=== PATIENT | male | born 1960 | race African-American/Black ===

== ENCOUNTER 2017-11-26 07:06 | Inpatient (IN) | payer MEDICAID ==
[~2017-11-26] VITALS: Ht 177.8 cm; Wt 126.6 kg
[~2017-11-26 07:06] MED LIST: AMLO5TAB4 PO; ASPI-1159; COR25; LISI40TA4; METF500T4 PO; RIVA20TA; SIMV20TA6
[2017-11-26] MEDS ORDERED: IPRATROPIUM BROMIDE (0.02%) 0.5MG/2.5ML NEB HHN STA (07:42)
[2017-11-26] MEDS ORDERED: ALBUTEROL (0.083%) 2.5MG/3ML NEB HHN STA (07:42)
[2017-11-26] MEDS ORDERED: BUMETANIDE 1MG/4ML VIAL IV ONE (07:45)
[2017-11-26 08:13] LABS: BASOPHILS % 0.7 % (0.0-2.0); EOSINOPHILS % 6.7 % (0.0-5.0); HEMATOCRIT. 39.6 % (42.0-52.0); LYMPHOCYTES % 13.6 % (20.0-50.0); MEAN CORPUSCULAR VOLUME 100.5 fL (80.0-94.0); MEAN PLATELET VOLUME 9.8 fl (7.4-10.4); MONOCYTES % 13.4 % (2.0-8.0); NEUTROPHILS % 65.6 % (40.0-76.0); PLATELET 169 x1000/uL (130-400); RED BLOOD CELL COUNT 3.94 mill/uL (4.7-6.1); RED CELL DISTRIBUTION WIDTH 15.8 % (11.6-14.6)
[2017-11-26 08:20] LABS: CHLORIDE 106 mEq/L (98-107)
[2017-11-26 08:21] LABS: INR 1.3; PARTIAL THROMBOPLASTIN TIME 25.4 sec (23.4-31.0); PROTHROMBIN TIME 13.4 sec (9.4-11.6)
[2017-11-26] MEDS ORDERED: ENOXAPARIN 40MG/0.4ML SYR SUBCUT SCH (08:45)
[2017-11-26] MEDS ORDERED: DIPHENHYDRAMINE 50MG/ML VIAL IV PRN (08:45)
[2017-11-26] MEDS ORDERED: ACETAMINOPHEN 325MG TABLET PO PRN (08:45)
[2017-11-26] MEDS ORDERED: MORPHINE SULFATE 4 MG/ML CPJ (NOT FOR IM USE) IV PRN (08:45)
[2017-11-26] MEDS ORDERED: CLONIDINE 0.1MG TABLET PO PRN (08:45)
[2017-11-26] MEDS ORDERED: GUAIFENESIN 200MG/10ML SUGAR FREE UDC PO PRN (08:45)
[2017-11-26] MEDS ORDERED: FUROSEMIDE 40MG/4ML VIAL IV SCH (09:00)
[2017-11-26] MEDS ORDERED: ENOXAPARIN 150MG/ML SYR SUBCUT ONE (09:15)
[2017-11-26] MEDS ORDERED: ASPIRIN 81MG TABLET PO ONE (09:30)
[2017-11-26 09:48] LABS: CHLORIDE 105 mEq/L (98-107)
[2017-11-26] MEDS ORDERED: NA PHOS,M-B/NA PHOS,DI-BA ENEMA 118ML PR PRN (15:37)
[2017-11-26] MEDS ORDERED: HYDROCODONE/ACETAMINOPHEN 10/325MG TABLET PO PRN (15:38)
[2017-11-26] MEDS ORDERED: IPRATROPIUM/ALBUTEROL 0.5-3(2.5)MG/3ML NEB INH PRN (15:39)
[2017-11-26] MEDS ORDERED: MAGNESIUM/ALUMINUM HYDROXIDE/SIMETHICONE 30ML UDC PO PRN (15:39)
[2017-11-26] MEDS ORDERED: DOCUSATE SODIUM 100MG CAPSULE PO PRN (15:40)
[2017-11-26] MEDS ORDERED: ONDANSETRON HCL 4MG/2ML VIAL IV PRN (15:40)
[2017-11-26] MEDS ORDERED: LORAZEPAM 2MG/ML CPJ IV PRN (15:41)
[2017-11-26] MEDS ORDERED: CARVEDILOL 25MG TABLET PO NR (17:00)
[2017-11-26 17:42] VITALS: BP 131/88
[2017-11-26 18:37] VITALS: BP 141/93
[2017-11-26] MEDS: ASPIRIN 81MG EC TABLET PO SCH (18:49)
[2017-11-26] MEDS: FUROSEMIDE 40MG/4ML VIAL IV SCH (18:50)
[2017-11-26] MEDS ORDERED: TAMS0.4C31 PO (19:44)
[2017-11-26] MEDS ORDERED: DEXTROSE 50% WATER 50ML SYRINGE IV PRN (19:45)
[2017-11-26 20:00] VITALS: BP 102/56
[2017-11-26] MEDS: INSULIN LISPRO 100 UNITS/ML SUBCUT SCH (21:00)
[2017-11-26] MEDS: AMLODIPINE 5MG TABLET PO SCH (21:00)
[2017-11-26] MEDS: LISINOPRIL 20MG TABLET PO SCH (21:00)
[2017-11-26] MEDS: IPRATROPIUM BROMIDE (0.02%) 0.5MG/2.5ML NEB HHN SCH (21:05)
[2017-11-26] MEDS: TAMSULOSIN HCL 0.4MG SR CAPSULE PO SCH (21:08)
[2017-11-26] MEDS: ENOXAPARIN 150MG/ML SYR SUBCUT SCH (21:09)
[2017-11-26] MEDS: BLOOD SUGAR DIAGNOSTIC STRIP TEST SCH (21:09)
[2017-11-26 22:30] VITALS: BP 119/69
[2017-11-27] VITALS (13 sets, daily range): BP systolic 103–151; BP diastolic 47–124
[2017-11-27] MEDS: IPRATROPIUM BROMIDE (0.02%) 0.5MG/2.5ML NEB HHN SCH ×4 (01:08→22:25)
[2017-11-27] MEDS: BLOOD SUGAR DIAGNOSTIC STRIP TEST SCH ×4 (06:25→20:59)
[2017-11-27 06:50] LABS: BASOPHILS % 0.5 % (0.0-2.0); EOSINOPHILS % 6.3 % (0.0-5.0); HEMATOCRIT. 37.1 % (42.0-52.0); HEMOGLOBIN. 12.3 g/dL (14.0-18.0); LYMPHOCYTES % 13.8 % (20.0-50.0); MEAN CORPUSCULAR HEMOGLOBIN 33.2 pg (28.0-32.0); MEAN CORPUSCULAR VOLUME 100.6 fL (80.0-94.0); MEAN PLATELET VOLUME 9.7 fl (7.4-10.4); MONOCYTES % 12.9 % (2.0-8.0); NEUTROPHILS % 66.5 % (40.0-76.0); PLATELET 168 x1000/uL (130-400); RED BLOOD CELL COUNT 3.69 mill/uL (4.7-6.1); RED CELL DISTRIBUTION WIDTH 15.7 % (11.6-14.6)
[2017-11-27] MEDS: INSULIN LISPRO 100 UNITS/ML SUBCUT SCH ×4 (07:20→20:59)
[2017-11-27 07:41] LABS: CHLORIDE 104 mEq/L (98-107)
[2017-11-27] MEDS: FUROSEMIDE 40MG/4ML VIAL IV SCH ×2 (07:55→17:06)
[2017-11-27] MEDS: LISINOPRIL 20MG TABLET PO SCH ×2 (07:56→20:57)
[2017-11-27] MEDS: ENOXAPARIN 150MG/ML SYR SUBCUT SCH ×2 (07:56→20:58)
[2017-11-27] MEDS: METFORMIN HCL 500MG TABLET PO SCH ×2 (07:56→17:06)
[2017-11-27] MEDS: ASPIRIN 81MG EC TABLET PO SCH (07:57)
[2017-11-27] MEDS: AMLODIPINE 5MG TABLET PO SCH ×2 (07:58→20:58)
[2017-11-27 08:00] LABS: LDL CHOLESTEROL 52 mg/dL (5-100)
[2017-11-27 08:01] LABS: HDL CHOLESTEROL 23 mg/dL (40-59); T4 FREE 1.14 ng/dL (0.76-1.46)
[2017-11-27 17:39] LABS: CLARITY URINE CLEAR (CLEAR); COLOR URINE YELLOW (YELLOW); KETONES URINE NEGATIVE (NEGATIVE); LEUKOCYTE ESTERASE URINE NEGATIVE (NEGATIVE); NITRITE URINE NEGATIVE (NEGATIVE); OCCULT BLOOD URINE NEGATIVE (NEGATIVE); PH URINE 5.5 (4.5-8.0); PROTEIN URINE TRACE (NEGATIVE)
[2017-11-27 18:02] LABS: *AMPHETAMINES SCREEN URINE NEGATIVE (NEGATIVE); CANNABINOID URINE SCREEN NEGATIVE (NEGATIVE); PHENCYCLIDINE URINE SCREEN NEGATIVE (NEGATIVE)
[2017-11-27 18:03] LABS: *BARBITURATES SCREEN URINE NEGATIVE (NEGATIVE); *BENZODIAZEPINES SCREEN URINE NEGATIVE (NEGATIVE); *COCAINE SCREEN URINE NEGATIVE (NEGATIVE); METHADONE URINE SCREEN NEGATIVE (NEGATIVE); OPIATES URINE SCREEN NEGATIVE (NEGATIVE)
[2017-11-27] MEDS: CARVEDILOL 6.25 MG TABLET PO SCH (20:57)
[2017-11-27] MEDS: TAMSULOSIN HCL 0.4MG SR CAPSULE PO SCH (21:04)
[2017-11-28] VITALS (12 sets, daily range): BP systolic 101–137; BP diastolic 60–91
[2017-11-28] MEDS: IPRATROPIUM BROMIDE (0.02%) 0.5MG/2.5ML NEB HHN SCH ×4 (04:28→20:04)
[2017-11-28] MEDS: BLOOD SUGAR DIAGNOSTIC STRIP TEST SCH ×4 (06:50→21:09)
[2017-11-28 06:54] LABS: EOSINOPHILS % 8.1 % (0.0-5.0); HEMATOCRIT. 38.7 % (42.0-52.0); HEMOGLOBIN. 12.7 g/dL (14.0-18.0); LYMPHOCYTES % 12.2 % (20.0-50.0); MEAN CORPUSCULAR HEMOGLOBIN 33.1 pg (28.0-32.0); MEAN CORPUSCULAR VOLUME 100.7 fL (80.0-94.0); MEAN PLATELET VOLUME 10.2 fl (7.4-10.4); MONOCYTES % 10.8 % (2.0-8.0); NEUTROPHILS % 67.9 % (40.0-76.0); PLATELET 177 x1000/uL (130-400); RED BLOOD CELL COUNT 3.85 mill/uL (4.7-6.1); RED CELL DISTRIBUTION WIDTH 15.5 % (11.6-14.6)
[2017-11-28] MEDS: INSULIN LISPRO 100 UNITS/ML SUBCUT SCH ×4 (07:20→21:00)
[2017-11-28] MEDS: METFORMIN HCL 500MG TABLET PO SCH ×2 (07:41→17:19)
[2017-11-28] MEDS: FUROSEMIDE 40MG/4ML VIAL IV SCH ×2 (07:41→17:19)
[2017-11-28] MEDS: ASPIRIN 81MG EC TABLET PO SCH (07:42)
[2017-11-28] MEDS: CARVEDILOL 6.25 MG TABLET PO SCH (07:43)
[2017-11-28] MEDS: AMLODIPINE 5MG TABLET PO SCH ×2 (07:43→21:03)
[2017-11-28] MEDS: ENOXAPARIN 150MG/ML SYR SUBCUT SCH ×2 (07:44→21:05)
[2017-11-28 08:53] LABS: CHLORIDE 104 mEq/L (98-107)
[2017-11-28] MEDS: LISINOPRIL 20MG TABLET PO SCH ×2 (11:28→21:03)
[2017-11-28] MEDS ORDERED: DIGOXIN 250MCG TABLET PO SCH (18:00)
[2017-11-28] MEDS: CARVEDILOL 12.5MG TABLET PO SCH (21:04)
[2017-11-28] MEDS: TAMSULOSIN HCL 0.4MG SR CAPSULE PO SCH (21:04)
[2017-11-29] VITALS (7 sets, daily range): BP systolic 110–145; BP diastolic 69–90
[2017-11-29] MEDS: IPRATROPIUM BROMIDE (0.02%) 0.5MG/2.5ML NEB HHN SCH ×2 (05:01→08:08)
[2017-11-29] MEDS: BLOOD SUGAR DIAGNOSTIC STRIP TEST SCH (06:26)
[2017-11-29 06:42] LABS: BASOPHILS % 0.7 % (0.0-2.0); EOSINOPHILS % 9.3 % (0.0-5.0); HEMATOCRIT. 37.7 % (42.0-52.0); HEMOGLOBIN. 12.3 g/dL (14.0-18.0); LYMPHOCYTES % 14.9 % (20.0-50.0); MEAN CORPUSCULAR HEMOGLOBIN 32.8 pg (28.0-32.0); MEAN CORPUSCULAR VOLUME 100.7 fL (80.0-94.0); MEAN PLATELET VOLUME 9.6 fl (7.4-10.4); MONOCYTES % 12.7 % (2.0-8.0); NEUTROPHILS % 62.4 % (40.0-76.0); PLATELET 190 x1000/uL (130-400); RED BLOOD CELL COUNT 3.74 mill/uL (4.7-6.1); RED CELL DISTRIBUTION WIDTH 15.4 % (11.6-14.6)
[2017-11-29] MEDS: INSULIN LISPRO 100 UNITS/ML SUBCUT SCH (06:54)
[2017-11-29 07:04] LABS: CHLORIDE 101 mEq/L (98-107)
[2017-11-29] MEDS: ASPIRIN 81MG EC TABLET PO SCH (08:21)
[2017-11-29] MEDS: METFORMIN HCL 500MG TABLET PO SCH (08:21)
[2017-11-29] MEDS: FUROSEMIDE 40MG/4ML VIAL IV SCH (08:21)
[2017-11-29] MEDS: CARVEDILOL 12.5MG TABLET PO SCH (08:21)
[2017-11-29] MEDS: LISINOPRIL 20MG TABLET PO SCH (08:21)
[2017-11-29] MEDS: AMLODIPINE 5MG TABLET PO SCH (08:22)
[2017-11-29] MEDS: ENOXAPARIN 150MG/ML SYR SUBCUT SCH (08:22)
[2017-11-29] MEDS ORDERED: CLON0.2T PO (09:41)
[2017-11-29] MEDS ORDERED: FURO40TA5 PO (09:42)
[2017-11-29] MEDS ORDERED: GLIP10TA10 PO (09:44)
== END 2017-11-29 10:00 | disposition home or self-care (01) | DRG 194 ==
LOC: ER 07:19 → EDBEDREQ 08:28 → 3WST 09:08 → EDBEDREQSVC 09:15 → ENRESERV 13:48
PROVIDERS: ADMIT Internal Medicine; ATTEND Internal Medicine
DX: I11.0 Hypertensive heart disease with heart failure (principal); J96.00 Acute respiratory failure, unspecified whether with hypoxia or hypercapnia; I21.4 Non-ST elevation (NSTEMI) myocardial infarction; E11.51 Type 2 diabetes mellitus with diabetic peripheral angiopathy without gangrene; Z68.41 Body mass index [BMI] 40.0-44.9, adult; I27.20 Pulmonary hypertension, unspecified; I50.43 Acute on chronic combined systolic (congestive) and diastolic (congestive) heart failure; I42.9 Cardiomyopathy, unspecified; D64.9 Anemia, unspecified; E78.5 Hyperlipidemia, unspecified; Z96.659 Presence of unspecified artificial knee joint; E66.09 Other obesity due to excess calories; I25.10 Atherosclerotic heart disease of native coronary artery without angina pectoris; I34.0 Nonrheumatic mitral (valve) insufficiency; I48.91 Unspecified atrial fibrillation; M17.10 Unilateral primary osteoarthritis, unspecified knee; Z79.01 Long term (current) use of anticoagulants; Z79.82 Long term (current) use of aspirin; Z79.84 Long term (current) use of oral hypoglycemic drugs; Z79.899 Other long term (current) drug therapy; Z82.49 Family history of ischemic heart disease and other diseases of the circulatory system; Z87.891 Personal history of nicotine dependence; Z90.49 Acquired absence of other specified parts of digestive tract; Z91.11 Patient's noncompliance with dietary regimen; Z91.19 Patient's noncompliance with other medical treatment and regimen; Z95.5 Presence of coronary angioplasty implant and graft; Z72.89 Other problems related to lifestyle
CPT/HCPCS: 36415; 71045; 80048; 80053; 80061; 80305; 81003; 82962; 83036; 83605; 83735; 83880; 84439; 84443; 84484; 85025; 85610; 85730; 87040; 87086; 93005; 93306; 93970; 94640; J1650; J1940; J3490; J7611; J7620

== ENCOUNTER 2018-06-01 09:02 | Inpatient (IN) | payer MEDICAID ==
[~2018-06-01] VITALS: Ht 177.8 cm; Wt 116.1 kg
[~2018-06-01 09:02] MED LIST changes: +CLON0.2T PO; -COR25; +FURO40TA5 PO; +GLIP10TA10 PO; -LISI40TA4; +METF-414 PO; -METF500T4 PO; -RIVA20TA; -SIMV20TA6; +TAMS0.4C31 PO
[2018-06-01 09:55] LABS: BASOPHILS % 0.9 % (0.0-2.0); EOSINOPHILS % 10.1 % (0.0-5.0); HEMATOCRIT. 40.4 % (42.0-52.0); HEMOGLOBIN. 13.5 g/dL (14.0-18.0); LYMPHOCYTES % 15.9 % (20.0-50.0); MEAN CORPUSCULAR HEMOGLOBIN 34.2 pg (28.0-32.0); MEAN CORPUSCULAR VOLUME 102.5 fL (80.0-94.0); MEAN PLATELET VOLUME 9.9 fl (7.4-10.4); MONOCYTES % 13.2 % (2.0-8.0); NEUTROPHILS % 59.9 % (40.0-76.0); PLATELET 132 x1000/uL (130-400); RED BLOOD CELL COUNT 3.94 mill/uL (4.7-6.1); RED CELL DISTRIBUTION WIDTH 14.7 % (11.6-14.6)
[2018-06-01 09:57] LABS: CHLORIDE 104 mEq/L (98-107)
[2018-06-01] MEDS ORDERED: ASPIRIN 81MG TABLET PO ONE (10:30)
[2018-06-01] MEDS ORDERED: FUROSEMIDE 40MG/4ML VIAL IVP NR (10:30)
[2018-06-01 20:00] VITALS: BP 150/81
[2018-06-01 20:30] VITALS: BP 150/81
[2018-06-01] MEDS ORDERED: ACETAMINOPHEN 325MG TABLET PO PRN (22:15)
[2018-06-01] MEDS ORDERED: ONDANSETRON HCL 4MG/2ML INJ IV PRN (22:15)
[2018-06-01] MEDS: ENOXAPARIN 150MG/ML SYR SUBCUT SCH (23:01)
[2018-06-02] VITALS: BP 148/99
[2018-06-02 04:00] VITALS: BP 116/94
[2018-06-02] MEDS: BLOOD SUGAR DIAGNOSTIC STRIP TEST SCH ×4 (06:21→20:42)
[2018-06-02] MEDS: GLIPIZIDE 10MG TABLET PO SCH (06:21)
[2018-06-02 06:59] LABS: BASOPHILS % 1.1 % (0.0-2.0); EOSINOPHILS % 12.6 % (0.0-5.0); HEMATOCRIT. 38.2 % (42.0-52.0); HEMOGLOBIN. 12.9 g/dL (14.0-18.0); LYMPHOCYTES % 14.5 % (20.0-50.0); MEAN CORPUSCULAR HEMOGLOBIN 34.1 pg (28.0-32.0); MEAN CORPUSCULAR VOLUME 101.6 fL (80.0-94.0); MEAN PLATELET VOLUME 9.8 fl (7.4-10.4); MONOCYTES % 13.4 % (2.0-8.0); NEUTROPHILS % 58.4 % (40.0-76.0); PLATELET 113 x1000/uL (130-400); RED BLOOD CELL COUNT 3.76 mill/uL (4.7-6.1); RED CELL DISTRIBUTION WIDTH 14.6 % (11.6-14.6)
[2018-06-02 07:16] LABS: CHLORIDE 106 mEq/L (98-107)
[2018-06-02 07:34] LABS: CREATINE KINASE 211 IU/L (39-308)
[2018-06-02 07:36] LABS: CREATINE KINASE MB FRACTION 2.8 ng/mL (0.5-3.6)
[2018-06-02] MEDS: INSULIN LISPRO 100 UNITS/ML SUBCUT SCH ×4 (07:39→20:42)
[2018-06-02 08:00] VITALS: BP 160/77
[2018-06-02] MEDS: ASPIRIN 81MG TABLET PO SCH (08:53)
[2018-06-02] MEDS: ENOXAPARIN 150MG/ML SYR SUBCUT SCH ×2 (09:00→20:44)
[2018-06-02] MEDS ORDERED: FUROSEMIDE 40MG/4ML VIAL IVP SCH (09:00)
[2018-06-02] MEDS ORDERED: AMLODIPINE 5MG TABLET PO SCH (09:00)
[2018-06-02] MEDS ORDERED: CLONIDINE 0.2MG TABLET PO SCH (09:00)
[2018-06-02] MEDS ORDERED: LISI-604 MT (10:40)
[2018-06-02 12:00] VITALS: BP 90/65
[2018-06-02 16:00] VITALS: BP 134/78
[2018-06-02 16:03] LABS: CREATINE KINASE MB FRACTION 2.9 ng/mL (0.5-3.6)
[2018-06-02 20:00] VITALS: BP 161/111
[2018-06-02] MEDS: FUROSEMIDE 40MG/4ML VIAL IVP SCH (20:43)
[2018-06-02] MEDS: LISINOPRIL 20MG TABLET PO SCH (20:44)
[2018-06-03] VITALS: BP 126/85
[2018-06-03 04:00] VITALS: BP 134/100
[2018-06-03] MEDS: GLIPIZIDE 10MG TABLET PO SCH (06:20)
[2018-06-03] MEDS: BLOOD SUGAR DIAGNOSTIC STRIP TEST SCH ×4 (06:20→20:48)
[2018-06-03 07:04] LABS: CHLORIDE 103 mEq/L (98-107)
[2018-06-03] MEDS: INSULIN LISPRO 100 UNITS/ML SUBCUT SCH ×4 (07:50→20:56)
[2018-06-03 08:06] VITALS: BP 137/91
[2018-06-03] MEDS: ASPIRIN 81MG TABLET PO SCH (09:36)
[2018-06-03] MEDS: FUROSEMIDE 40MG/4ML VIAL IVP SCH ×2 (09:36→20:46)
[2018-06-03] MEDS: METOLAZONE 2.5MG TABLET PO SCH ×2 (09:37→17:35)
[2018-06-03] MEDS: CLONIDINE 0.1MG TABLET PO SCH (09:37)
[2018-06-03] MEDS: LISINOPRIL 20MG TABLET PO SCH ×2 (09:38→20:47)
[2018-06-03] MEDS: ENOXAPARIN 150MG/ML SYR SUBCUT SCH ×2 (09:44→20:47)
[2018-06-03 12:07] VITALS: BP 142/90
[2018-06-03 16:03] VITALS: BP 122/80
[2018-06-03 20:00] VITALS: BP 126/94
[2018-06-04] VITALS: BP 133/97
[2018-06-04 04:00] VITALS: BP 134/100
[2018-06-04] MEDS: GLIPIZIDE 10MG TABLET PO SCH (06:12)
[2018-06-04] MEDS: BLOOD SUGAR DIAGNOSTIC STRIP TEST SCH ×4 (06:13→21:40)
[2018-06-04] MEDS: INSULIN LISPRO 100 UNITS/ML SUBCUT SCH ×4 (07:50→21:00)
[2018-06-04 08:00] VITALS: BP 135/81
[2018-06-04 08:07] LABS: CHLORIDE 97 mEq/L (98-107)
[2018-06-04] MEDS: FUROSEMIDE 40MG/4ML VIAL IVP SCH ×2 (08:45→21:31)
[2018-06-04] MEDS: ENOXAPARIN 150MG/ML SYR SUBCUT SCH ×2 (08:45→21:31)
[2018-06-04] MEDS: METOLAZONE 2.5MG TABLET PO SCH ×2 (08:46→16:59)
[2018-06-04] MEDS: ASPIRIN 81MG TABLET PO SCH (08:46)
[2018-06-04] MEDS: CLONIDINE 0.1MG TABLET PO SCH (08:46)
[2018-06-04] MEDS: LISINOPRIL 20MG TABLET PO SCH ×2 (08:46→21:31)
[2018-06-04 13:02] VITALS: BP 120/73
[2018-06-04 16:45] VITALS: BP 110/85
[2018-06-04 18:03] LABS: CLARITY URINE CLEAR (CLEAR); COLOR URINE YELLOW (YELLOW); KETONES URINE NEGATIVE (NEGATIVE); LEUKOCYTE ESTERASE URINE NEGATIVE (NEGATIVE); NITRITE URINE NEGATIVE (NEGATIVE); OCCULT BLOOD URINE NEGATIVE (NEGATIVE); PROTEIN URINE NEGATIVE (NEGATIVE); SPECIFIC GRAVITY URINE 1.011 (1.005-1.030)
[2018-06-04 20:11] VITALS: BP 132/96
[2018-06-05 00:34] VITALS: BP 131/81
[2018-06-05 04:00] VITALS: BP 98/70
[2018-06-05] MEDS: BLOOD SUGAR DIAGNOSTIC STRIP TEST SCH ×4 (06:57→21:06)
[2018-06-05] MEDS: GLIPIZIDE 10MG TABLET PO SCH (06:57)
[2018-06-05] MEDS: INSULIN LISPRO 100 UNITS/ML SUBCUT SCH ×4 (06:58→21:00)
[2018-06-05 07:40] LABS: HEMATOCRIT. 40.1 % (42.0-52.0); HEMOGLOBIN. 13.4 g/dL (14.0-18.0); MEAN CORPUSCULAR VOLUME 101.5 fL (80.0-94.0); MEAN PLATELET VOLUME 10.4 fl (7.4-10.4); PLATELET 117 x1000/uL (130-400); RED BLOOD CELL COUNT 3.95 mill/uL (4.7-6.1); RED CELL DISTRIBUTION WIDTH 14.4 % (11.6-14.6)
[2018-06-05 07:47] LABS: CHLORIDE 95 mEq/L (98-107)
[2018-06-05 08:03] LABS: PHOSPHORUS 4.7 mg/dL (2.5-4.9)
[2018-06-05 08:04] VITALS: BP 132/72
[2018-06-05] MEDS: CLONIDINE 0.1MG TABLET PO SCH (09:06)
[2018-06-05] MEDS: FUROSEMIDE 40MG/4ML VIAL IVP SCH ×2 (09:06→21:05)
[2018-06-05] MEDS: ASPIRIN 81MG TABLET PO SCH (09:06)
[2018-06-05] MEDS: METOLAZONE 2.5MG TABLET PO SCH ×2 (09:06→17:19)
[2018-06-05] MEDS: LISINOPRIL 20MG TABLET PO SCH ×2 (09:07→21:00)
[2018-06-05] MEDS: ENOXAPARIN 150MG/ML SYR SUBCUT SCH ×2 (09:08→21:00)
[2018-06-05] MEDS: DEXTROSE 50% WATER 50ML SYRINGE IV PRN ×2 (12:15→17:19)
[2018-06-05 12:20] VITALS: BP 134/84
[2018-06-05 13:12] LABS: PLATELET ESTIMATE SLIGHTLY DECREASED
[2018-06-05 16:08] VITALS: BP 134/84
[2018-06-05 20:00] VITALS: BP 109/78
[2018-06-06] VITALS: BP 112/76
[2018-06-06 04:00] VITALS: BP 115/79
[2018-06-06] MEDS: BLOOD SUGAR DIAGNOSTIC STRIP TEST SCH ×4 (06:28→20:34)
[2018-06-06 06:41] LABS: HEMATOCRIT. 38.5 % (42.0-52.0); HEMOGLOBIN. 13.1 g/dL (14.0-18.0); MEAN CORPUSCULAR HEMOGLOBIN 34.2 pg (28.0-32.0); MEAN CORPUSCULAR VOLUME 100.5 fL (80.0-94.0); MEAN PLATELET VOLUME 10.8 fl (7.4-10.4); PLATELET 136 x1000/uL (130-400); RED BLOOD CELL COUNT 3.83 mill/uL (4.7-6.1); RED CELL DISTRIBUTION WIDTH 14.4 % (11.6-14.6)
[2018-06-06] MEDS: INSULIN LISPRO 100 UNITS/ML SUBCUT SCH ×4 (07:06→20:33)
[2018-06-06 07:10] LABS: CHLORIDE 91 mEq/L (98-107)
[2018-06-06 08:19] VITALS: BP 132/86
[2018-06-06] MEDS: ASPIRIN 81MG TABLET PO SCH (08:37)
[2018-06-06] MEDS: GLIPIZIDE 10MG TABLET PO SCH (08:37)
[2018-06-06] MEDS: LISINOPRIL 20MG TABLET PO SCH ×2 (08:37→20:33)
[2018-06-06] MEDS: METOLAZONE 2.5MG TABLET PO SCH ×2 (08:37→17:08)
[2018-06-06] MEDS: FUROSEMIDE 40MG/4ML VIAL IVP SCH ×2 (08:37→20:32)
[2018-06-06] MEDS: CLONIDINE 0.1MG TABLET PO SCH (08:39)
[2018-06-06] MEDS: ENOXAPARIN 150MG/ML SYR SUBCUT SCH (08:40)
[2018-06-06 10:53] LABS: PLATELET ESTIMATE NORMAL
[2018-06-06 12:36] VITALS: BP 95/55
[2018-06-06 16:17] VITALS: BP 97/66
[2018-06-06] MEDS ORDERED: POTASSIUM CHLORIDE 20MEQ TABLET SR PO NR (16:30)
[2018-06-06 20:00] VITALS: BP 148/89
[2018-06-06] MEDS: ENOXAPARIN 120MG/0.8ML SYR SUBCUT SCH (20:41)
[2018-06-07] VITALS: BP 113/68
[2018-06-07 04:00] VITALS: BP 111/79
[2018-06-07] MEDS: BLOOD SUGAR DIAGNOSTIC STRIP TEST SCH ×4 (06:20→21:14)
[2018-06-07 06:28] LABS: HEMATOCRIT. 41.6 % (42.0-52.0); HEMOGLOBIN. 13.9 g/dL (14.0-18.0); MEAN CORPUSCULAR HEMOGLOBIN 33.8 pg (28.0-32.0); MEAN CORPUSCULAR VOLUME 100.9 fL (80.0-94.0); MEAN PLATELET VOLUME 10.5 fl (7.4-10.4); PLATELET 138 x1000/uL (130-400); RED BLOOD CELL COUNT 4.13 mill/uL (4.7-6.1); RED CELL DISTRIBUTION WIDTH 14.5 % (11.6-14.6)
[2018-06-07 06:53] LABS: CHLORIDE 92 mEq/L (98-107)
[2018-06-07] MEDS: INSULIN LISPRO 100 UNITS/ML SUBCUT SCH ×4 (07:12→21:00)
[2018-06-07] MEDS: LISINOPRIL 20MG TABLET PO SCH ×2 (08:21→21:00)
[2018-06-07] MEDS: CLONIDINE 0.1MG TABLET PO SCH (08:21)
[2018-06-07] MEDS: ASPIRIN 81MG TABLET PO SCH (08:30)
[2018-06-07] MEDS: FUROSEMIDE 40MG/4ML VIAL IVP SCH ×2 (08:30→21:13)
[2018-06-07] MEDS: METOLAZONE 2.5MG TABLET PO SCH ×2 (08:30→17:53)
[2018-06-07] MEDS: GLIPIZIDE 10MG TABLET PO SCH (08:30)
[2018-06-07] MEDS: ENOXAPARIN 120MG/0.8ML SYR SUBCUT SCH ×3 (08:31→21:14)
[2018-06-07 09:24] LABS: PLATELET ESTIMATE NORMAL
[2018-06-07 12:00] VITALS: BP 107/68
[2018-06-07 16:00] VITALS: BP 131/95
[2018-06-07 20:00] VITALS: BP 97/73
[2018-06-08] VITALS (8 sets, daily range): BP systolic 91–122; BP diastolic 50–89
[2018-06-08] MEDS: BLOOD SUGAR DIAGNOSTIC STRIP TEST SCH ×4 (06:20→21:00)
[2018-06-08 06:45] LABS: HEMATOCRIT. 43.8 % (42.0-52.0); HEMOGLOBIN. 14.8 g/dL (14.0-18.0); MEAN CORPUSCULAR VOLUME 100.6 fL (80.0-94.0); MEAN PLATELET VOLUME 10.3 fl (7.4-10.4); PLATELET 135 x1000/uL (130-400); RED BLOOD CELL COUNT 4.35 mill/uL (4.7-6.1); RED CELL DISTRIBUTION WIDTH 14.6 % (11.6-14.6)
[2018-06-08 07:10] LABS: CHLORIDE 91 mEq/L (98-107)
[2018-06-08] MEDS: INSULIN LISPRO 100 UNITS/ML SUBCUT SCH ×4 (07:50→21:00)
[2018-06-08] MEDS: CLONIDINE 0.1MG TABLET PO SCH (08:12)
[2018-06-08] MEDS: LISINOPRIL 20MG TABLET PO SCH ×2 (08:13→21:00)
[2018-06-08] MEDS: ASPIRIN 81MG TABLET PO SCH (08:50)
[2018-06-08] MEDS: FUROSEMIDE 40MG/4ML VIAL IVP SCH ×2 (08:50→21:22)
[2018-06-08] MEDS: GLIPIZIDE 10MG TABLET PO SCH (08:50)
[2018-06-08] MEDS: ENOXAPARIN 120MG/0.8ML SYR SUBCUT SCH ×2 (08:51→21:25)
[2018-06-08] MEDS: METOLAZONE 2.5MG TABLET PO SCH ×2 (09:20→18:28)
[2018-06-08] MEDS ORDERED: HYDROCODONE/ACETAMINOPHEN 5/325MG TABLET PO PRN (10:15)
[2018-06-08 13:54] LABS: PLATELET ESTIMATE NORMAL
[2018-06-08] MEDS ORDERED: AMIODARONE HCL 50MG/ML 9ML VIAL IV ONE ×2 (14:30)
[2018-06-08] MEDS ORDERED: AMIODARONE HCL 150 MG in DEXT 5% WATER 100 ML IV SCH (15:00)
[2018-06-08] MEDS ORDERED: AMIODARONE HCL 900 MG in DEXT 5% WATER 482 ML IV SCH (15:00)
[2018-06-09] VITALS (12 sets, daily range): BP systolic 98–123; BP diastolic 51–84
[2018-06-09] MEDS: GLIPIZIDE 10MG TABLET PO SCH (07:05)
[2018-06-09] MEDS: INSULIN LISPRO 100 UNITS/ML SUBCUT SCH ×4 (08:00→21:00)
[2018-06-09] MEDS: BLOOD SUGAR DIAGNOSTIC STRIP TEST SCH ×4 (08:02→20:36)
[2018-06-09 08:19] LABS: HEMATOCRIT. 44.2 % (42.0-52.0); HEMOGLOBIN. 14.9 g/dL (14.0-18.0); MEAN CORPUSCULAR VOLUME 100.5 fL (80.0-94.0); MEAN PLATELET VOLUME 10.8 fl (7.4-10.4); PLATELET 148 x1000/uL (130-400); RED BLOOD CELL COUNT 4.39 mill/uL (4.7-6.1); RED CELL DISTRIBUTION WIDTH 14.4 % (11.6-14.6)
[2018-06-09] MEDS: ENOXAPARIN 120MG/0.8ML SYR SUBCUT SCH ×2 (09:00→20:24)
[2018-06-09] MEDS: FUROSEMIDE 40MG/4ML VIAL IVP SCH ×2 (09:08→20:23)
[2018-06-09] MEDS: CLONIDINE 0.1MG TABLET PO SCH (09:08)
[2018-06-09] MEDS: METOLAZONE 2.5MG TABLET PO SCH (09:08)
[2018-06-09] MEDS: LISINOPRIL 20MG TABLET PO SCH ×2 (09:08→20:24)
[2018-06-09] MEDS: ASPIRIN 81MG TABLET PO SCH (09:08)
[2018-06-09 11:26] LABS: PLATELET ESTIMATE NORMAL
[2018-06-09] MEDS ORDERED: COLCHICINE 0.6MG TABLET PO NR (12:25)
[2018-06-09] MEDS: COLCHICINE 0.6MG TABLET PO SCH (20:23)
[2018-06-10] VITALS (7 sets, daily range): BP systolic 71–121; BP diastolic 44–77
[2018-06-10] MEDS: GLIPIZIDE 10MG TABLET PO SCH (06:42)
[2018-06-10 06:49] LABS: HEMATOCRIT. 46.4 % (42.0-52.0); HEMOGLOBIN. 15.6 g/dL (14.0-18.0); MEAN CORPUSCULAR VOLUME 100.7 fL (80.0-94.0); PLATELET 151 x1000/uL (130-400); RED BLOOD CELL COUNT 4.61 mill/uL (4.7-6.1); RED CELL DISTRIBUTION WIDTH 14.6 % (11.6-14.6)
[2018-06-10] MEDS: INSULIN LISPRO 100 UNITS/ML SUBCUT SCH ×4 (07:54→21:00)
[2018-06-10] MEDS: BLOOD SUGAR DIAGNOSTIC STRIP TEST SCH ×4 (07:54→21:33)
[2018-06-10] MEDS: ENOXAPARIN 120MG/0.8ML SYR SUBCUT SCH ×2 (09:00→21:00)
[2018-06-10] MEDS ORDERED: COLCHICINE 0.6MG TABLET PO PRN (09:00)
[2018-06-10] MEDS: COLCHICINE 0.6MG TABLET PO SCH (09:51)
[2018-06-10] MEDS: ASPIRIN 81MG TABLET PO SCH (09:51)
[2018-06-10] MEDS: LISINOPRIL 20MG TABLET PO SCH ×2 (09:52→21:00)
[2018-06-10] MEDS: CLONIDINE 0.1MG TABLET PO SCH (09:52)
[2018-06-10] MEDS: FUROSEMIDE 40MG/4ML VIAL IVP SCH (09:53)
[2018-06-10 11:23] LABS: PHOSPHORUS 5.3 mg/dL (2.5-4.9)
[2018-06-10 14:02] LABS: PLATELET ESTIMATE NORMAL
[2018-06-10] MEDS: FUROSEMIDE 40MG TABLET PO SCH (19:35)
[2018-06-10] MEDS ORDERED: SODIUM CHLORIDE 0.9% 250 ML IV ONE (21:30)
[2018-06-11 07:15] VITALS: BP 95/64
[2018-06-11 08:00] VITALS: BP 83/54
[2018-06-11] MEDS: INSULIN LISPRO 100 UNITS/ML SUBCUT SCH ×2 (08:00→12:09)
[2018-06-11] MEDS: BLOOD SUGAR DIAGNOSTIC STRIP TEST SCH ×2 (08:18→11:39)
[2018-06-11] MEDS: CLONIDINE 0.1MG TABLET PO SCH (08:19)
[2018-06-11] MEDS: LISINOPRIL 20MG TABLET PO SCH (08:19)
[2018-06-11] MEDS: FUROSEMIDE 40MG TABLET PO SCH (08:19)
[2018-06-11] MEDS: GLIPIZIDE 10MG TABLET PO SCH (08:48)
[2018-06-11] MEDS: ASPIRIN 81MG TABLET PO SCH (08:48)
[2018-06-11] MEDS: ENOXAPARIN 120MG/0.8ML SYR SUBCUT SCH (08:49)
[2018-06-11 10:00] VITALS: BP 92/60
[2018-06-11 11:45] VITALS: BP 87/49
[2018-06-11 12:00] VITALS: BP 79/53
[2018-06-11 16:00] VITALS: BP 83/55
[2018-06-12] MEDS ORDERED: LISINOPRIL 10MG TABLET PO SCH (09:00)
== END 2018-06-11 17:52 | disposition left against medical advice (07) | DRG 194 ==
LOC: ER 09:02 → 6WST 12:07 → ENRESERV 17:37 → 5EST 06-08 16:13
PROVIDERS: ADMIT Internal Medicine; ATTEND Internal Medicine
DX: I13.0 Hypertensive heart and chronic kidney disease with heart failure and stage 1 through stage 4 chronic kidney disease, or unspecified chronic kidney disease (principal); E11.22 Type 2 diabetes mellitus with diabetic chronic kidney disease; I27.20 Pulmonary hypertension, unspecified; I95.9 Hypotension, unspecified; N18.3 Chronic kidney disease, stage 3 (moderate); E87.1 Hypo-osmolality and hyponatremia; E66.01 Morbid (severe) obesity due to excess calories; K74.60 Unspecified cirrhosis of liver; I50.33 Acute on chronic diastolic (congestive) heart failure; I48.2 Chronic atrial fibrillation; M79.671 Pain in right foot; Z53.21 Procedure and treatment not carried out due to patient leaving prior to being seen by health care provider; F17.200 Nicotine dependence, unspecified, uncomplicated; F32.9 Major depressive disorder, single episode, unspecified; F41.9 Anxiety disorder, unspecified; J44.9 Chronic obstructive pulmonary disease, unspecified; M10.9 Gout, unspecified; Z96.659 Presence of unspecified artificial knee joint; Z68.36 Body mass index [BMI] 36.0-36.9, adult; Z90.49 Acquired absence of other specified parts of digestive tract; I25.2 Old myocardial infarction; Z79.82 Long term (current) use of aspirin; Z79.84 Long term (current) use of oral hypoglycemic drugs
CPT/HCPCS: 36415; 71045; 76700; 80048; 82550; 82553; 82570; 82962; 83735; 83880; 84100; 84156; 84484; 84550; 93005; 93306; 93970; 96374; 97162; 99285; C1893; J0282; J1650; J1940; J7050; J7060

== ENCOUNTER 2018-08-01 07:07 | Inpatient (IN) | payer MEDICAID ==
[~2018-08-01] VITALS: Ht 177.8 cm; Wt 139.7 kg
[~2018-08-01 07:07] MED LIST changes: +LISI-604 MT
[2018-08-01] MEDS ORDERED: FUROSEMIDE 40MG/4ML VIAL IVP ONE (11:45)
[2018-08-01 12:38] LABS: BASOPHILS % 1.2 % (0.0-2.0); EOSINOPHILS % 7.9 % (0.0-5.0); HEMATOCRIT. 41.1 % (42.0-52.0); HEMOGLOBIN. 13.4 g/dL (14.0-18.0); LYMPHOCYTES % 14.5 % (20.0-50.0); MEAN CORPUSCULAR HEMOGLOBIN 33.8 pg (28.0-32.0); MEAN CORPUSCULAR VOLUME 103.9 fL (80.0-94.0); MEAN PLATELET VOLUME 9.6 fl (7.4-10.4); MONOCYTES % 13.3 % (2.0-8.0); NEUTROPHILS % 63.1 % (40.0-76.0); PLATELET 165 x1000/uL (130-400); RED BLOOD CELL COUNT 3.96 mill/uL (4.7-6.1)
[2018-08-01 12:43] LABS: CHLORIDE 106 mEq/L (98-107)
[2018-08-01 12:51] LABS: ETHANOL BLOOD < 10 mg/dL
[2018-08-01 12:52] LABS: INR 1.3; PARTIAL THROMBOPLASTIN TIME 25.9 sec (23.4-31.0); PROTHROMBIN TIME 13.5 sec (9.1-11.1)
[2018-08-01] MEDS ORDERED: ASPIRIN 81MG TABLET PO ONE (13:15)
[2018-08-01] MEDS: SODIUM CHLORIDE 0.45% 1,000 ML IV SCH (13:39)
[2018-08-01] MEDS ORDERED: DIPHENHYDRAMINE 50MG/ML VIAL IV PRN (13:45)
[2018-08-01] MEDS ORDERED: GUAIFENESIN 200MG/10ML SUGAR FREE UDC PO PRN (13:45)
[2018-08-01] MEDS ORDERED: DOCUSATE SODIUM 100MG CAPSULE PO PRN (13:45)
[2018-08-01] MEDS ORDERED: IPRATROPIUM/ALBUTEROL 0.5-3(2.5)MG/3ML NEB INH PRN (13:45)
[2018-08-01] MEDS ORDERED: LORAZEPAM 2MG/ML CPJ IV PRN (13:45)
[2018-08-01] MEDS ORDERED: CLONIDINE 0.1MG TABLET PO PRN (13:45)
[2018-08-01] MEDS ORDERED: MAGNESIUM/ALUMINUM HYDROXIDE/SIMETHICONE 30ML UDC PO PRN (13:45)
[2018-08-01] MEDS ORDERED: ACETAMINOPHEN 325MG TABLET PO PRN (13:45)
[2018-08-01] MEDS ORDERED: MORPHINE SULFATE 4 MG/ML CPJ (NOT FOR IM USE) IV PRN (13:45)
[2018-08-01] MEDS ORDERED: ONDANSETRON HCL 4MG/2ML INJ IV PRN (13:45)
[2018-08-01] MEDS ORDERED: HYDROCODONE/ACETAMINOPHEN 5/325MG TABLET PO PRN (13:45)
[2018-08-01] MEDS ORDERED: ASPIRIN 81MG TABLET PO NR (16:58)
[2018-08-01] MEDS ORDERED: FUROSEMIDE 40MG/4ML VIAL IVP NR (16:59)
[2018-08-01] MEDS ORDERED: ENOXAPARIN 40MG/0.4ML SYR SUBCUT NR (17:15)
[2018-08-01 17:31] LABS: CHLORIDE 107 mEq/L (98-107)
[2018-08-01] MEDS ORDERED: NA PHOS,M-B/NA PHOS,DI-BA ENEMA 118ML PR PRN (18:00)
[2018-08-01 19:13] VITALS: BP 128/83
[2018-08-01 20:01] VITALS: BP 137/75
[2018-08-01 20:58] VITALS: BP 148/102
[2018-08-01 21:03] VITALS: BP 128/83
[2018-08-01 21:57] VITALS: BP 177/102
[2018-08-01 22:30] VITALS: BP 168/88
[2018-08-02] VITALS (13 sets, daily range): BP systolic 111–161; BP diastolic 65–93
[2018-08-02 07:17] LABS: HEMOGLOBIN. 12.5 g/dL (14.0-18.0); MEAN CORPUSCULAR HEMOGLOBIN 34.1 pg (28.0-32.0); MEAN CORPUSCULAR VOLUME 103.2 fL (80.0-94.0); MEAN PLATELET VOLUME 10.1 fl (7.4-10.4); PLATELET 165 x1000/uL (130-400); RED BLOOD CELL COUNT 3.68 mill/uL (4.7-6.1); RED CELL DISTRIBUTION WIDTH 14.8 % (11.6-14.6)
[2018-08-02] MEDS: SODIUM CHLORIDE 0.45% 1,000 ML IV SCH (08:14)
[2018-08-02] MEDS: ASPIRIN 81MG EC TABLET PO SCH (08:56)
[2018-08-02] MEDS: ENOXAPARIN 30MG/0.3ML SYR SUBCUT SCH ×3 (09:00→20:42)
[2018-08-02 11:04] LABS: CHLORIDE 106 mEq/L (98-107)
[2018-08-02 11:15] LABS: LDL CHOLESTEROL 59 mg/dL (5-100)
[2018-08-02 11:17] LABS: HDL CHOLESTEROL 29 mg/dL (40-59)
[2018-08-02 11:18] LABS: T4 FREE 1.28 ng/dL (0.76-1.46)
[2018-08-02] MEDS: FUROSEMIDE 40MG/4ML VIAL IVP SCH (17:35)
[2018-08-02] MEDS: POTASSIUM CHLORIDE 20MEQ TABLET SR PO SCH (17:35)
[2018-08-02 18:55] LABS: PLATELET ESTIMATE NORMAL
[2018-08-02] MEDS ORDERED: POTASSIUM CHLORIDE 20MEQ TABLET SR PO SCH (20:00)
[2018-08-02] MEDS ORDERED: FUROSEMIDE 40MG/4ML VIAL IVP SCH (20:00)
[2018-08-02] MEDS: LISINOPRIL 20MG TABLET PO SCH (20:42)
[2018-08-03] VITALS: BP 134/92
[2018-08-03] MEDS: SODIUM CHLORIDE 0.45% 1,000 ML IV SCH (05:50)
[2018-08-03 06:00] VITALS: BP 121/86
[2018-08-03 07:44] LABS: CHLORIDE 106 mEq/L (98-107)
[2018-08-03 08:00] VITALS: BP 118/72
[2018-08-03] MEDS: POTASSIUM CHLORIDE 20MEQ TABLET SR PO SCH ×2 (09:05→18:10)
[2018-08-03] MEDS: FUROSEMIDE 40MG/4ML VIAL IVP SCH ×2 (09:05→18:10)
[2018-08-03] MEDS: ENOXAPARIN 30MG/0.3ML SYR SUBCUT SCH (09:05)
[2018-08-03] MEDS: LISINOPRIL 20MG TABLET PO SCH (09:07)
[2018-08-03] MEDS: ASPIRIN 81MG EC TABLET PO SCH (09:07)
[2018-08-03 10:00] VITALS: BP 125/72
[2018-08-03] MEDS ORDERED: ENOXAPARIN 40MG/0.4ML SYR SUBCUT SCH (21:00)
[2018-08-03] MEDS: IPRATROPIUM/ALBUTEROL 0.5-3(2.5)MG/3ML NEB HHN SCH (21:35)
[2018-08-03] MEDS: ENOXAPARIN 80MG/0.8ML SYR SUBCUT SCH (21:47)
[2018-08-04] MEDS: IPRATROPIUM/ALBUTEROL 0.5-3(2.5)MG/3ML NEB HHN SCH ×4 (02:00→21:35)
[2018-08-04 08:37] LABS: CHLORIDE 104 mEq/L (98-107)
[2018-08-04] MEDS: FUROSEMIDE 40MG/4ML VIAL IVP SCH ×3 (09:15→17:21)
[2018-08-04] MEDS: ASPIRIN 81MG EC TABLET PO SCH (09:15)
[2018-08-04] MEDS: POTASSIUM CHLORIDE 20MEQ TABLET SR PO SCH ×2 (09:15→17:21)
[2018-08-04] MEDS: LISINOPRIL 20MG TABLET PO SCH (09:17)
[2018-08-04] MEDS: ENOXAPARIN 80MG/0.8ML SYR SUBCUT SCH ×2 (09:18→20:15)
[2018-08-04 10:00] VITALS: BP 136/77
[2018-08-04 16:00] VITALS: BP 146/80
[2018-08-04 20:20] VITALS: BP 133/73
[2018-08-04] MEDS: TAMSULOSIN HCL 0.4MG SR CAPSULE PO SCH (20:21)
[2018-08-05 00:22] VITALS: BP 127/73
[2018-08-05] MEDS: IPRATROPIUM/ALBUTEROL 0.5-3(2.5)MG/3ML NEB HHN SCH ×3 (04:32→14:01)
[2018-08-05 07:47] LABS: CHLORIDE 103 mEq/L (98-107)
[2018-08-05 07:49] LABS: HEMATOCRIT. 38.4 % (42.0-52.0); HEMOGLOBIN. 12.7 g/dL (14.0-18.0); MEAN CORPUSCULAR HEMOGLOBIN 33.9 pg (28.0-32.0); MEAN CORPUSCULAR VOLUME 102.5 fL (80.0-94.0); MEAN PLATELET VOLUME 10.6 fl (7.4-10.4); PLATELET 153 x1000/uL (130-400); RED BLOOD CELL COUNT 3.75 mill/uL (4.7-6.1); RED CELL DISTRIBUTION WIDTH 14.6 % (11.6-14.6)
[2018-08-05] MEDS: TAMSULOSIN HCL 0.4MG SR CAPSULE PO SCH (08:40)
[2018-08-05] MEDS: ASPIRIN 81MG EC TABLET PO SCH (08:40)
[2018-08-05] MEDS: POTASSIUM CHLORIDE 20MEQ TABLET SR PO SCH ×2 (08:40→17:30)
[2018-08-05] MEDS: LISINOPRIL 20MG TABLET PO SCH (08:40)
[2018-08-05] MEDS: FUROSEMIDE 40MG/4ML VIAL IVP SCH ×2 (08:40→17:30)
[2018-08-05] MEDS: ENOXAPARIN 80MG/0.8ML SYR SUBCUT SCH (08:41)
[2018-08-05 12:00] VITALS: BP 112/83
[2018-08-05] MEDS: ATENOLOL 25MG TABLET PO SCH ×2 (14:31→20:22)
[2018-08-05] MEDS ORDERED: IPRATROPIUM BROMIDE (0.02%) 0.5MG/2.5ML NEB HHN PRN (17:00)
[2018-08-05 20:00] VITALS: BP 122/72
[2018-08-05] MEDS: ENOXAPARIN 150MG/ML SYR SUBCUT SCH (20:22)
[2018-08-05 21:08] LABS: PLATELET ESTIMATE NORMAL
[2018-08-05] MEDS: IPRATROPIUM BROMIDE (0.02%) 0.5MG/2.5ML NEB HHN SCH (21:14)
[2018-08-06] VITALS: BP 110/65
[2018-08-06] MEDS: IPRATROPIUM BROMIDE (0.02%) 0.5MG/2.5ML NEB HHN SCH ×3 (02:17→20:44)
[2018-08-06 04:00] VITALS: BP 120/77
[2018-08-06] MEDS: FUROSEMIDE 40MG/4ML VIAL IVP SCH (06:44)
[2018-08-06 07:17] LABS: HEMATOCRIT. 41.1 % (42.0-52.0); HEMOGLOBIN. 13.5 g/dL (14.0-18.0); MEAN CORPUSCULAR HEMOGLOBIN 34.1 pg (28.0-32.0); MEAN CORPUSCULAR VOLUME 103.5 fL (80.0-94.0); MEAN PLATELET VOLUME 10.1 fl (7.4-10.4); PLATELET 149 x1000/uL (130-400); RED BLOOD CELL COUNT 3.97 mill/uL (4.7-6.1); RED CELL DISTRIBUTION WIDTH 15.1 % (11.6-14.6)
[2018-08-06] MEDS: POTASSIUM CHLORIDE 20MEQ TABLET SR PO SCH (09:10)
[2018-08-06] MEDS: ENOXAPARIN 150MG/ML SYR SUBCUT SCH ×2 (09:10→20:48)
[2018-08-06] MEDS: TAMSULOSIN HCL 0.4MG SR CAPSULE PO SCH (09:11)
[2018-08-06] MEDS: ASPIRIN 81MG EC TABLET PO SCH (09:11)
[2018-08-06] MEDS: ATENOLOL 25MG TABLET PO SCH ×2 (09:11→20:48)
[2018-08-06] MEDS: LISINOPRIL 20MG TABLET PO SCH (09:12)
[2018-08-06 09:15] VITALS: BP 112/85
[2018-08-06 12:00] VITALS: BP 113/75
[2018-08-06 14:42] LABS: PLATELET ESTIMATE NORMAL
[2018-08-06 16:00] VITALS: BP 129/89
[2018-08-06 20:00] VITALS: BP 130/68
[2018-08-07] VITALS (7 sets, daily range): BP systolic 105–141; BP diastolic 67–96
[2018-08-07] MEDS: IPRATROPIUM BROMIDE (0.02%) 0.5MG/2.5ML NEB HHN SCH ×4 (02:12→20:15)
[2018-08-07 08:07] LABS: CHLORIDE 103 mEq/L (98-107)
[2018-08-07] MEDS: ASPIRIN 81MG EC TABLET PO SCH (08:32)
[2018-08-07] MEDS: ATENOLOL 25MG TABLET PO SCH ×2 (08:32→20:40)
[2018-08-07] MEDS: LISINOPRIL 20MG TABLET PO SCH (08:32)
[2018-08-07] MEDS: TAMSULOSIN HCL 0.4MG SR CAPSULE PO SCH (08:32)
[2018-08-07] MEDS: ENOXAPARIN 150MG/ML SYR SUBCUT SCH ×2 (08:33→20:44)
[2018-08-07] MEDS: FUROSEMIDE 40MG/4ML VIAL IVP SCH ×2 (13:30→18:48)
[2018-08-07] MEDS: SILDENAFIL CITRATE 20MG TABLET PO SCH ×2 (13:32→18:49)
[2018-08-08] VITALS (9 sets, daily range): BP systolic 103–141; BP diastolic 64–77
[2018-08-08] MEDS: IPRATROPIUM BROMIDE (0.02%) 0.5MG/2.5ML NEB HHN SCH ×4 (01:57→21:34)
[2018-08-08 07:56] LABS: HEMATOCRIT. 39.9 % (42.0-52.0); HEMOGLOBIN. 13.1 g/dL (14.0-18.0); MEAN CORPUSCULAR HEMOGLOBIN 33.7 pg (28.0-32.0); MEAN CORPUSCULAR VOLUME 102.8 fL (80.0-94.0); MEAN PLATELET VOLUME 10.5 fl (7.4-10.4); PLATELET 152 x1000/uL (130-400); RED BLOOD CELL COUNT 3.88 mill/uL (4.7-6.1); RED CELL DISTRIBUTION WIDTH 14.5 % (11.6-14.6)
[2018-08-08 08:04] LABS: CHLORIDE 101 mEq/L (98-107)
[2018-08-08] MEDS: TAMSULOSIN HCL 0.4MG SR CAPSULE PO SCH ×2 (09:00→11:22)
[2018-08-08] MEDS: ATENOLOL 25MG TABLET PO SCH ×2 (09:00→21:29)
[2018-08-08] MEDS: LISINOPRIL 20MG TABLET PO SCH (09:00)
[2018-08-08] MEDS: SILDENAFIL CITRATE 20MG TABLET PO SCH ×3 (09:00→17:59)
[2018-08-08] MEDS: FUROSEMIDE 40MG/4ML VIAL IVP SCH ×3 (10:13→17:59)
[2018-08-08] MEDS: ENOXAPARIN 150MG/ML SYR SUBCUT SCH ×2 (10:26→21:35)
[2018-08-08] MEDS: ASPIRIN 81MG EC TABLET PO SCH (10:30)
[2018-08-08 11:57] LABS: PLATELET ESTIMATE NORMAL
[2018-08-09] VITALS (7 sets, daily range): BP systolic 95–137; BP diastolic 58–96
[2018-08-09] MEDS: IPRATROPIUM BROMIDE (0.02%) 0.5MG/2.5ML NEB HHN SCH ×4 (02:45→20:45)
[2018-08-09 07:08] LABS: CHLORIDE 100 mEq/L (98-107); HEMATOCRIT. 39.3 % (42.0-52.0); MEAN CORPUSCULAR HEMOGLOBIN 33.9 pg (28.0-32.0); MEAN CORPUSCULAR VOLUME 102.3 fL (80.0-94.0); MEAN PLATELET VOLUME 10.6 fl (7.4-10.4); PLATELET 134 x1000/uL (130-400); RED BLOOD CELL COUNT 3.84 mill/uL (4.7-6.1); RED CELL DISTRIBUTION WIDTH 14.6 % (11.6-14.6)
[2018-08-09] MEDS: LISINOPRIL 20MG TABLET PO SCH (09:00)
[2018-08-09] MEDS: ATENOLOL 25MG TABLET PO SCH ×3 (09:00→20:21)
[2018-08-09] MEDS: FUROSEMIDE 40MG/4ML VIAL IVP SCH ×3 (09:35→17:37)
[2018-08-09] MEDS: TAMSULOSIN HCL 0.4MG SR CAPSULE PO SCH (09:37)
[2018-08-09] MEDS: ENOXAPARIN 150MG/ML SYR SUBCUT SCH ×2 (09:38→20:22)
[2018-08-09] MEDS: ASPIRIN 81MG EC TABLET PO SCH (09:38)
[2018-08-09] MEDS: SILDENAFIL CITRATE 20MG TABLET PO SCH ×3 (09:38→17:37)
[2018-08-09 14:21] LABS: PLATELET ESTIMATE NORMAL
[2018-08-10] VITALS (7 sets, daily range): BP systolic 105–130; BP diastolic 65–86
[2018-08-10] MEDS: IPRATROPIUM BROMIDE (0.02%) 0.5MG/2.5ML NEB HHN SCH ×4 (00:27→20:51)
[2018-08-10 06:44] LABS: HEMATOCRIT. 39.3 % (42.0-52.0); HEMOGLOBIN. 12.9 g/dL (14.0-18.0); MEAN CORPUSCULAR HEMOGLOBIN 33.9 pg (28.0-32.0); MEAN CORPUSCULAR VOLUME 102.9 fL (80.0-94.0); MEAN PLATELET VOLUME 10.8 fl (7.4-10.4); PLATELET 122 x1000/uL (130-400); RED BLOOD CELL COUNT 3.82 mill/uL (4.7-6.1)
[2018-08-10 06:45] LABS: CHLORIDE 99 mEq/L (98-107)
[2018-08-10] MEDS: ASPIRIN 81MG EC TABLET PO SCH (08:51)
[2018-08-10] MEDS: TAMSULOSIN HCL 0.4MG SR CAPSULE PO SCH (08:51)
[2018-08-10] MEDS: SILDENAFIL CITRATE 20MG TABLET PO SCH ×3 (08:51→20:10)
[2018-08-10] MEDS: LISINOPRIL 20MG TABLET PO SCH (08:52)
[2018-08-10] MEDS: ENOXAPARIN 150MG/ML SYR SUBCUT SCH (08:52)
[2018-08-10] MEDS: ATENOLOL 25MG TABLET PO SCH ×2 (08:52→20:10)
[2018-08-10] MEDS: FUROSEMIDE 40MG/4ML VIAL IVP SCH (08:53)
[2018-08-10 11:56] LABS: PLATELET ESTIMATE SLIGHTLY DECREASED
[2018-08-10] MEDS: RIVAROXABAN 20 MG TABLET PO SCH (20:10)
[2018-08-11] VITALS (8 sets, daily range): BP systolic 93–134; BP diastolic 43–96
[2018-08-11] MEDS: SILDENAFIL CITRATE 20MG TABLET PO SCH ×3 (08:22→16:34)
[2018-08-11] MEDS: TAMSULOSIN HCL 0.4MG SR CAPSULE PO SCH (08:22)
[2018-08-11] MEDS: FUROSEMIDE 40MG/4ML VIAL IVP SCH (08:22)
[2018-08-11] MEDS: ATENOLOL 25MG TABLET PO SCH ×2 (08:23→21:00)
[2018-08-11] MEDS: ASPIRIN 81MG EC TABLET PO SCH (08:23)
[2018-08-11] MEDS: LISINOPRIL 20MG TABLET PO SCH (08:41)
[2018-08-11] MEDS: IPRATROPIUM BROMIDE (0.02%) 0.5MG/2.5ML NEB HHN SCH ×2 (11:28→20:03)
[2018-08-11] MEDS: RIVAROXABAN 20 MG TABLET PO SCH (16:34)
[2018-08-11] MEDS ORDERED: DEXTROSE 50% WATER 50ML SYRINGE IV PRN (19:45)
[2018-08-11] MEDS: INSULIN LISPRO 100 UNITS/ML SUBCUT SCH (21:00)
[2018-08-11] MEDS: BLOOD SUGAR DIAGNOSTIC STRIP TEST SCH (21:43)
[2018-08-12] VITALS (7 sets, daily range): BP systolic 98–133; BP diastolic 71–96
[2018-08-12] MEDS: IPRATROPIUM BROMIDE (0.02%) 0.5MG/2.5ML NEB HHN SCH ×2 (02:10→07:46)
[2018-08-12] MEDS: BLOOD SUGAR DIAGNOSTIC STRIP TEST SCH ×2 (07:30→12:30)
[2018-08-12] MEDS: INSULIN LISPRO 100 UNITS/ML SUBCUT SCH (08:00)
[2018-08-12] MEDS: TAMSULOSIN HCL 0.4MG SR CAPSULE PO SCH (09:26)
[2018-08-12] MEDS: ASPIRIN 81MG EC TABLET PO SCH (09:26)
[2018-08-12] MEDS: ATENOLOL 25MG TABLET PO SCH (09:26)
[2018-08-12] MEDS: LISINOPRIL 20MG TABLET PO SCH (09:27)
[2018-08-12] MEDS: SILDENAFIL CITRATE 20MG TABLET PO SCH ×2 (09:27→13:00)
[2018-08-12] MEDS: FUROSEMIDE 40MG/4ML VIAL IVP SCH (09:27)
== END 2018-08-12 13:55 | disposition home or self-care (01) | DRG 194 ==
LOC: ER 07:33 → 5EST 14:00 → EDBEDREQSVC 14:05 → EDBEDREQTM 14:05 → EDBEDREQ 14:05 → ENRESERV 15:18 → 5EST 08-04 19:44
PROVIDERS: ADMIT Internal Medicine; ATTEND Internal Medicine
DX: I11.0 Hypertensive heart disease with heart failure (principal); I21.4 Non-ST elevation (NSTEMI) myocardial infarction; J96.00 Acute respiratory failure, unspecified whether with hypoxia or hypercapnia; I27.20 Pulmonary hypertension, unspecified; G90.8 Other disorders of autonomic nervous system; I42.9 Cardiomyopathy, unspecified; E11.9 Type 2 diabetes mellitus without complications; D64.9 Anemia, unspecified; I48.2 Chronic atrial fibrillation; I50.43 Acute on chronic combined systolic (congestive) and diastolic (congestive) heart failure; N19 Unspecified kidney failure; N40.0 Benign prostatic hyperplasia without lower urinary tract symptoms; F41.9 Anxiety disorder, unspecified; I25.10 Atherosclerotic heart disease of native coronary artery without angina pectoris; N50.89 Other specified disorders of the male genital organs; Z79.84 Long term (current) use of oral hypoglycemic drugs; Z79.899 Other long term (current) drug therapy; Z95.5 Presence of coronary angioplasty implant and graft; Z79.82 Long term (current) use of aspirin; Z91.19 Patient's noncompliance with other medical treatment and regimen
CPT/HCPCS: 36415; 71045; 76870; 80048; 80061; 82962; 83735; 83880; 84439; 84443; 84484; 93005; 93306; 93976; 94640; 96374; 97161; 97166; 99291; C1893; G0482; J1650; J1940; J7620

== ENCOUNTER 2018-08-17 11:09 | Inpatient (IN) | payer MEDICAID ==
[~2018-08-17] VITALS: Ht 177.8 cm; Wt 126.6 kg
[2018-08-17 16:26] LABS: EOSINOPHILS % 12.5 % (0.0-5.0); HEMATOCRIT. 39.3 % (42.0-52.0); LYMPHOCYTES % 12.1 % (20.0-50.0); MEAN CORPUSCULAR HEMOGLOBIN 34.1 pg (28.0-32.0); MEAN CORPUSCULAR VOLUME 102.8 fL (80.0-94.0); MEAN PLATELET VOLUME 10.6 fl (7.4-10.4); MONOCYTES % 12.8 % (2.0-8.0); NEUTROPHILS % 61.6 % (40.0-76.0); PLATELET 223 x1000/uL (130-400); RED BLOOD CELL COUNT 3.82 mill/uL (4.7-6.1); RED CELL DISTRIBUTION WIDTH 14.4 % (11.6-14.6)
[2018-08-17 16:36] LABS: CHLORIDE 101 mEq/L (98-107)
[2018-08-17] MEDS ORDERED: FUROSEMIDE 40MG/4ML VIAL IVP ONE (17:00)
[2018-08-17] MEDS ORDERED: DEXTROSE 50% WATER 50ML SYRINGE IV PRN (17:45)
[2018-08-17] MEDS ORDERED: DOCUSATE SODIUM 100MG CAPSULE PO PRN (17:45)
[2018-08-17] MEDS ORDERED: IPRATROPIUM/ALBUTEROL 0.5-3(2.5)MG/3ML NEB INH PRN (17:45)
[2018-08-17] MEDS ORDERED: MAGNESIUM/ALUMINUM HYDROXIDE/SIMETHICONE 30ML UDC PO PRN (17:45)
[2018-08-17] MEDS ORDERED: HYDRALAZINE 20MG/ML VIAL IV PRN (17:45)
[2018-08-17] MEDS ORDERED: CLONIDINE 0.1MG TABLET PO PRN (17:45)
[2018-08-17] MEDS ORDERED: GUAIFENESIN 200MG/10ML SUGAR FREE UDC PO PRN (17:45)
[2018-08-17] MEDS ORDERED: ACETAMINOPHEN 325MG TABLET PO PRN (17:45)
[2018-08-17] MEDS ORDERED: ONDANSETRON HCL 4MG/2ML INJ IV PRN (17:45)
[2018-08-17] MEDS ORDERED: HYDROMORPHONE HCL/PF 2MG/ML CPJ IV PRN (17:45)
[2018-08-17 19:56] LABS: CLARITY URINE CLEAR (CLEAR); COLOR URINE YELLOW (YELLOW); KETONES URINE NEGATIVE (NEGATIVE); LEUKOCYTE ESTERASE URINE NEGATIVE (NEGATIVE); NITRITE URINE NEGATIVE (NEGATIVE); OCCULT BLOOD URINE NEGATIVE (NEGATIVE); PH URINE 8.5 (4.5-8.0); PROTEIN URINE NEGATIVE (NEGATIVE); SPECIFIC GRAVITY URINE 1.006 (1.005-1.030)
[2018-08-17] MEDS ORDERED: HYDROCODONE/ACETAMINOPHEN 10/325MG TABLET PO PRN (21:43)
[2018-08-17] MEDS ORDERED: LORAZEPAM 2MG/ML CPJ IV PRN (21:50)
[2018-08-17 23:00] VITALS: BP 113/80
[2018-08-18 00:43] LABS: CREATINE KINASE MB FRACTION 1.7 ng/mL (0.5-3.6)
[2018-08-18 04:00] VITALS: BP 112/80
[2018-08-18] MEDS: SODIUM CHLORIDE 0.9% INJ 3ML FLUSH IVF SCH ×4 (06:00→21:24)
[2018-08-18] MEDS: BLOOD SUGAR DIAGNOSTIC STRIP TEST SCH ×4 (06:09→21:13)
[2018-08-18] MEDS: INSULIN LISPRO 100 UNITS/ML SUBCUT SCH ×4 (06:09→21:00)
[2018-08-18 08:00] VITALS: BP 122/80
[2018-08-18] MEDS: ENOXAPARIN 30MG/0.3ML SYR SUBCUT SCH ×2 (09:00→21:00)
[2018-08-18] MEDS: FUROSEMIDE 40MG/4ML VIAL IVP SCH ×2 (09:44→17:24)
[2018-08-18] MEDS: ASPIRIN 81MG EC TABLET PO SCH (09:45)
[2018-08-18 10:05] LABS: HEMATOCRIT. 35.9 % (42.0-52.0); HEMOGLOBIN. 11.9 g/dL (14.0-18.0); MEAN CORPUSCULAR HEMOGLOBIN 33.8 pg (28.0-32.0); MEAN CORPUSCULAR VOLUME 101.9 fL (80.0-94.0); PLATELET 198 x1000/uL (130-400); RED BLOOD CELL COUNT 3.52 mill/uL (4.7-6.1); RED CELL DISTRIBUTION WIDTH 14.5 % (11.6-14.6)
[2018-08-18 10:15] LABS: CHLORIDE 101 mEq/L (98-107)
[2018-08-18 10:28] LABS: LDL CHOLESTEROL 62 mg/dL (5-100); T4 FREE 1.36 ng/dL (0.76-1.46)
[2018-08-18 10:30] LABS: CREATINE KINASE 116 IU/L (39-308)
[2018-08-18 10:31] LABS: HDL CHOLESTEROL 28 mg/dL (40-59)
[2018-08-18 10:40] LABS: CREATINE KINASE MB FRACTION 1.6 ng/mL (0.5-3.6)
[2018-08-18 16:00] VITALS: BP 124/90
[2018-08-18 16:29] LABS: PLATELET ESTIMATE NORMAL
[2018-08-18] MEDS: ATENOLOL 25MG TABLET PO SCH (17:25)
[2018-08-18] MEDS: LISINOPRIL 10MG TABLET PO SCH (17:25)
[2018-08-18 20:00] VITALS: BP 109/81
[2018-08-19] VITALS (7 sets, daily range): BP systolic 97–135; BP diastolic 66–94
[2018-08-19] MEDS: BLOOD SUGAR DIAGNOSTIC STRIP TEST SCH ×4 (06:04→20:36)
[2018-08-19] MEDS: INSULIN LISPRO 100 UNITS/ML SUBCUT SCH ×4 (06:04→20:36)
[2018-08-19] MEDS: SODIUM CHLORIDE 0.9% INJ 3ML FLUSH IVF SCH ×4 (06:04→22:10)
[2018-08-19 07:35] LABS: HEMATOCRIT. 36.1 % (42.0-52.0); HEMOGLOBIN. 11.9 g/dL (14.0-18.0); MEAN CORPUSCULAR HEMOGLOBIN 33.8 pg (28.0-32.0); MEAN CORPUSCULAR VOLUME 102.6 fL (80.0-94.0); MEAN PLATELET VOLUME 9.7 fl (7.4-10.4); PLATELET 201 x1000/uL (130-400); RED BLOOD CELL COUNT 3.51 mill/uL (4.7-6.1); RED CELL DISTRIBUTION WIDTH 14.4 % (11.6-14.6)
[2018-08-19 07:46] LABS: CHLORIDE 101 mEq/L (98-107)
[2018-08-19] MEDS: ASPIRIN 81MG EC TABLET PO SCH (08:10)
[2018-08-19] MEDS: ATENOLOL 25MG TABLET PO SCH (08:11)
[2018-08-19] MEDS: ENOXAPARIN 30MG/0.3ML SYR SUBCUT SCH ×2 (08:11→20:36)
[2018-08-19] MEDS: FUROSEMIDE 40MG/4ML VIAL IVP SCH ×2 (08:11→18:08)
[2018-08-19] MEDS: LISINOPRIL 10MG TABLET PO SCH ×2 (08:11→17:00)
[2018-08-19] MEDS: ATENOLOL 50 MG TABLET PO SCH ×2 (09:00→20:35)
[2018-08-19 11:47] LABS: PLATELET ESTIMATE NORMAL
[2018-08-20] VITALS: BP 104/79
[2018-08-20 04:00] VITALS: BP 107/69
[2018-08-20] MEDS: SODIUM CHLORIDE 0.9% INJ 3ML FLUSH IVF SCH (06:05)
[2018-08-20] MEDS: BLOOD SUGAR DIAGNOSTIC STRIP TEST SCH (06:36)
[2018-08-20] MEDS: INSULIN LISPRO 100 UNITS/ML SUBCUT SCH (06:36)
[2018-08-20 08:00] VITALS: BP 124/81
[2018-08-20] MEDS: LISINOPRIL 10MG TABLET PO SCH (08:25)
[2018-08-20] MEDS: ASPIRIN 81MG EC TABLET PO SCH (08:25)
[2018-08-20] MEDS: ATENOLOL 50 MG TABLET PO SCH (08:26)
[2018-08-20] MEDS: ENOXAPARIN 30MG/0.3ML SYR SUBCUT SCH (08:26)
[2018-08-20] MEDS: FUROSEMIDE 40MG/4ML VIAL IVP SCH (08:26)
[2018-08-20 08:48] VITALS: BP 124/81
[2018-08-20] MEDS ORDERED: ATEN100T MT (08:52)
== END 2018-08-20 09:50 | disposition home or self-care (01) | DRG 194 ==
LOC: ER 11:09 → 8WST 17:15 → EDBEDREQ 17:19 → ENRESERV 22:00
PROVIDERS: ADMIT Internal Medicine; ATTEND Internal Medicine
DX: I11.0 Hypertensive heart disease with heart failure (principal); I27.20 Pulmonary hypertension, unspecified; Z79.01 Long term (current) use of anticoagulants; I48.2 Chronic atrial fibrillation; E11.9 Type 2 diabetes mellitus without complications; R74.8 Abnormal levels of other serum enzymes; Z79.84 Long term (current) use of oral hypoglycemic drugs; I50.43 Acute on chronic combined systolic (congestive) and diastolic (congestive) heart failure
CPT/HCPCS: 36415; 71045; 80048; 80061; 82550; 82553; 82962; 83880; 84439; 84443; 84484; 93005; 93970; 96374; 96375; 99285; J1650; J1940

== ENCOUNTER 2018-12-08 18:43 | Inpatient (IN) | payer MEDICAID ==
[~2018-12-08] VITALS: Ht 177.8 cm; Wt 136.1 kg
[~2018-12-08 18:43] MED LIST changes: -ASPI-1159; +ASPI-1393; +ATEN100T MT
[2018-12-08] MEDS ORDERED: BACITRACIN ZINC OINT UDPKT TOP ONE (20:00)
[2018-12-08] MEDS ORDERED: HYDROCODONE/ACETAMINOPHEN 5/325MG TABLET PO ONE (20:00)
[2018-12-08 20:24] LABS: HEMATOCRIT. 32.4 % (42.0-52.0); HEMOGLOBIN. 10.9 g/dL (14.0-18.0); MEAN CORPUSCULAR HEMOGLOBIN 34.5 pg (28.0-32.0); MEAN CORPUSCULAR VOLUME 102.7 fL (80.0-94.0); MEAN PLATELET VOLUME 9.7 fl (7.4-10.4); PLATELET 132 x1000/uL (130-400); RED BLOOD CELL COUNT 3.15 mill/uL (4.7-6.1); RED CELL DISTRIBUTION WIDTH 14.4 % (11.6-14.6)
[2018-12-08 20:29] LABS: CHLORIDE 103 mEq/L (98-107)
[2018-12-08 20:43] LABS: PLATELET ESTIMATE NORMAL
[2018-12-08] MEDS ORDERED: METOPROLOL TARTRATE 5MG/5ML VIAL IV SCH (21:45)
[2018-12-08] MEDS ORDERED: FUROSEMIDE 40MG/4ML VIAL IVP ONE (21:45)
[2018-12-09 01:49] VITALS: BP 116/83
[2018-12-09 06:42] VITALS: BP 146/89
[2018-12-09] MEDS ORDERED: HYDROCODONE/ACETAMINOPHEN 5/325MG TABLET PO PRN (06:45)
[2018-12-09] MEDS ORDERED: DEXTROSE 50% WATER 50ML SYRINGE IV PRN (06:45)
[2018-12-09] MEDS: INSULIN LISPRO 100 UNITS/ML SUBCUT SCH ×4 (07:18→20:28)
[2018-12-09] MEDS: BLOOD SUGAR DIAGNOSTIC STRIP TEST SCH ×4 (07:18→20:28)
[2018-12-09 08:38] VITALS: BP 121/82
[2018-12-09] MEDS ORDERED: DIGOXIN 500MCG/2ML AMP IV NR ×2 (09:45→14:00)
[2018-12-09] MEDS: FUROSEMIDE 40MG/4ML VIAL IVP SCH ×2 (10:35→18:30)
[2018-12-09] MEDS: ENOXAPARIN 120MG/0.8ML SYR SUBCUT SCH ×2 (10:46→21:10)
[2018-12-09 12:05] VITALS: BP 124/86
[2018-12-09] MEDS ORDERED: DILTIAZEM HCL 5MG/ML 5ML VIAL IV PRN (13:45)
[2018-12-09] MEDS: SPIRONOLACTONE 25MG TABLET PO SCH (14:42)
[2018-12-09] MEDS: LOSARTAN POTASSIUM 25 MG TABLET PO SCH (14:42)
[2018-12-09 16:31] VITALS: BP 119/70
[2018-12-09 18:37] LABS: *AMPHETAMINES SCREEN URINE NEGATIVE (NEGATIVE); *BARBITURATES SCREEN URINE NEGATIVE (NEGATIVE); *BENZODIAZEPINES SCREEN URINE NEGATIVE (NEGATIVE); *COCAINE SCREEN URINE NEGATIVE (NEGATIVE)
[2018-12-09 18:38] LABS: CANNABINOID URINE SCREEN NEGATIVE (NEGATIVE); METHADONE URINE SCREEN NEGATIVE (NEGATIVE); OPIATES URINE SCREEN NEGATIVE (NEGATIVE); PHENCYCLIDINE URINE SCREEN NEGATIVE (NEGATIVE)
[2018-12-09 20:00] VITALS: BP 141/95
[2018-12-09] MEDS: METOPROLOL TARTRATE 25MG TABLET PO SCH (21:11)
[2018-12-10] VITALS: BP 119/89
[2018-12-10 04:00] VITALS: BP 124/88
[2018-12-10] MEDS: BLOOD SUGAR DIAGNOSTIC STRIP TEST SCH ×4 (06:01→21:04)
[2018-12-10] MEDS: INSULIN LISPRO 100 UNITS/ML SUBCUT SCH ×5 (06:01→21:00)
[2018-12-10] MEDS: FUROSEMIDE 40MG/4ML VIAL IVP SCH ×2 (06:16→16:44)
[2018-12-10 06:49] LABS: INR 1.4; PROTHROMBIN TIME 14.3 sec (9.6-11.0)
[2018-12-10 06:59] LABS: HEMATOCRIT. 37.8 % (42.0-52.0); HEMOGLOBIN. 12.6 g/dL (14.0-18.0); MEAN CORPUSCULAR HEMOGLOBIN 34.7 pg (28.0-32.0); MEAN CORPUSCULAR VOLUME 103.8 fL (80.0-94.0); PLATELET 163 x1000/uL (130-400); RED BLOOD CELL COUNT 3.64 mill/uL (4.7-6.1); RED CELL DISTRIBUTION WIDTH 14.5 % (11.6-14.6)
[2018-12-10 07:16] LABS: CHLORIDE 101 mEq/L (98-107)
[2018-12-10 07:23] LABS: PHOSPHORUS 3.7 mg/dL (2.5-4.9)
[2018-12-10 08:00] VITALS: BP 128/77
[2018-12-10 08:20] LABS: VITAMIN B12 SERUM 542 pg/mL (211-911)
[2018-12-10] MEDS: LOSARTAN POTASSIUM 25 MG TABLET PO SCH ×2 (08:22→08:26)
[2018-12-10] MEDS: METOLAZONE 5MG TABLET PO SCH (08:22)
[2018-12-10] MEDS: ENOXAPARIN 120MG/0.8ML SYR SUBCUT SCH ×2 (08:23→21:16)
[2018-12-10] MEDS: METOPROLOL TARTRATE 25MG TABLET PO SCH ×2 (08:23→21:17)
[2018-12-10] MEDS: SPIRONOLACTONE 25MG TABLET PO SCH (08:23)
[2018-12-10 10:56] LABS: HEPATITIS B SURFACE ANTIGEN NEGATIVE
[2018-12-10 11:25] LABS: HEPATITIS A AB IGM NEGATIVE (NEGATIVE)
[2018-12-10 12:00] VITALS: BP 113/69
[2018-12-10] MEDS ORDERED: GLIP10TA10 MT (12:14)
[2018-12-10 16:00] VITALS: BP 117/81
[2018-12-10 20:00] VITALS: BP 113/74
[2018-12-11] VITALS: BP 118/71
[2018-12-11 03:54] LABS: PLATELET ESTIMATE NORMAL
[2018-12-11 04:00] VITALS: BP 111/78
[2018-12-11] MEDS: BLOOD SUGAR DIAGNOSTIC STRIP TEST SCH ×4 (05:52→20:36)
[2018-12-11] MEDS: FUROSEMIDE 40MG/4ML VIAL IVP SCH ×2 (06:22→17:30)
[2018-12-11] MEDS: INSULIN LISPRO 100 UNITS/ML SUBCUT SCH ×4 (06:31→21:00)
[2018-12-11 08:00] VITALS: BP 126/96
[2018-12-11] MEDS: METOLAZONE 5MG TABLET PO SCH (08:06)
[2018-12-11] MEDS: LOSARTAN POTASSIUM 50 MG TABLET PO SCH (08:07)
[2018-12-11] MEDS: METOPROLOL TARTRATE 25MG TABLET PO SCH ×2 (08:07→20:58)
[2018-12-11] MEDS: SPIRONOLACTONE 25MG TABLET PO SCH (08:07)
[2018-12-11] MEDS: ENOXAPARIN 120MG/0.8ML SYR SUBCUT SCH (08:08)
[2018-12-11 08:19] LABS: CHLORIDE 99 mEq/L (98-107)
[2018-12-11 11:55] VITALS: BP 107/74
[2018-12-11 16:00] VITALS: BP 119/67
[2018-12-11 20:49] VITALS: BP 117/72
[2018-12-11] MEDS ORDERED: ENOXAPARIN 150MG/ML SYR SUBCUT SCH (21:00)
[2018-12-12] MEDS: BLOOD SUGAR DIAGNOSTIC STRIP TEST SCH ×4 (06:06→21:35)
[2018-12-12] MEDS: FUROSEMIDE 40MG/4ML VIAL IVP SCH ×2 (06:32→18:22)
[2018-12-12 06:37] LABS: MEAN CORPUSCULAR HEMOGLOBIN 35.1 pg (28.0-32.0); MEAN CORPUSCULAR VOLUME 102.4 fL (80.0-94.0); MEAN PLATELET VOLUME 9.9 fl (7.4-10.4); PLATELET 144 x1000/uL (130-400); RED BLOOD CELL COUNT 3.42 mill/uL (4.7-6.1); RED CELL DISTRIBUTION WIDTH 14.5 % (11.6-14.6)
[2018-12-12] MEDS: INSULIN LISPRO 100 UNITS/ML SUBCUT SCH ×4 (06:50→22:01)
[2018-12-12 07:09] LABS: CHLORIDE 96 mEq/L (98-107)
[2018-12-12 08:00] VITALS: BP 122/59
[2018-12-12] MEDS: METOLAZONE 5MG TABLET PO SCH (10:31)
[2018-12-12] MEDS: SPIRONOLACTONE 25MG TABLET PO SCH (10:31)
[2018-12-12] MEDS: LOSARTAN POTASSIUM 50 MG TABLET PO SCH (10:31)
[2018-12-12 14:14] LABS: PLATELET ESTIMATE NORMAL
[2018-12-12 16:00] VITALS: BP 113/73
[2018-12-12] MEDS ORDERED: RIVAROXABAN 20 MG TABLET PO SCH (17:00)
[2018-12-12 20:00] VITALS: BP 116/79
[2018-12-12] MEDS: METOPROLOL TARTRATE 25MG TABLET PO SCH (22:00)
[2018-12-13] VITALS: BP 110/77
[2018-12-13 04:00] VITALS: BP 131/91
[2018-12-13 04:20] LABS: HIV SCREEN 4G Non Reactive (Non Reactive)
[2018-12-13] MEDS: BLOOD SUGAR DIAGNOSTIC STRIP TEST SCH ×2 (06:28→12:45)
[2018-12-13] MEDS: INSULIN LISPRO 100 UNITS/ML SUBCUT SCH ×2 (06:28→12:40)
[2018-12-13] MEDS: FUROSEMIDE 40MG/4ML VIAL IVP SCH ×2 (06:29→17:21)
[2018-12-13 07:53] LABS: CHLORIDE 95 mEq/L (98-107)
[2018-12-13 08:00] LABS: PHOSPHORUS 4.7 mg/dL (2.5-4.9)
[2018-12-13] MEDS: LOSARTAN POTASSIUM 50 MG TABLET PO SCH (08:39)
[2018-12-13] MEDS: SPIRONOLACTONE 25MG TABLET PO SCH (08:40)
[2018-12-13] MEDS: METOLAZONE 5MG TABLET PO SCH (08:40)
[2018-12-13] MEDS: METOPROLOL TARTRATE 25MG TABLET PO SCH (08:40)
[2018-12-13 17:39] VITALS: BP 115/77
== END 2018-12-13 19:50 | disposition home or self-care (01) | DRG 194 ==
LOC: ER 18:44 → 8WST 22:36 → ENRESERV 23:48
PROVIDERS: ADMIT Internal Medicine; ATTEND Internal Medicine
DX: I11.0 Hypertensive heart disease with heart failure (principal); D72.1 Eosinophilia; I27.20 Pulmonary hypertension, unspecified; E66.01 Morbid (severe) obesity due to excess calories; I08.1 Rheumatic disorders of both mitral and tricuspid valves; L97.909 Non-pressure chronic ulcer of unspecified part of unspecified lower leg with unspecified severity; R18.8 Other ascites; E11.9 Type 2 diabetes mellitus without complications; D50.9 Iron deficiency anemia, unspecified; I50.23 Acute on chronic systolic (congestive) heart failure; J44.9 Chronic obstructive pulmonary disease, unspecified; Z95.5 Presence of coronary angioplasty implant and graft; I25.10 Atherosclerotic heart disease of native coronary artery without angina pectoris; K74.60 Unspecified cirrhosis of liver; D53.9 Nutritional anemia, unspecified; I42.9 Cardiomyopathy, unspecified; I45.10 Unspecified right bundle-branch block; I48.2 Chronic atrial fibrillation; L97.929 Non-pressure chronic ulcer of unspecified part of left lower leg with unspecified severity; Z79.01 Long term (current) use of anticoagulants; Z79.84 Long term (current) use of oral hypoglycemic drugs; Z90.49 Acquired absence of other specified parts of digestive tract; Z91.19 Patient's noncompliance with other medical treatment and regimen; Z68.41 Body mass index [BMI] 40.0-44.9, adult
CPT/HCPCS: 36415; 71045; 76705; 80048; 80305; 82607; 82962; 83735; 83880; 84100; 84484; 86705; 86709; 86803; 87340; 87389; 93005; 93970; 96374; 99285; J1160; J1650; J1815; J1940; J3490

== ENCOUNTER 2019-01-27 16:08 | Inpatient (IN) | payer MEDICAID ==
[~2019-01-27] VITALS: Ht 154.9 cm; Wt 118.8 kg
[~2019-01-27 16:08] MED LIST changes: -AMLO5TAB4 PO; -ASPI-1393; -ATEN100T MT; -CLON0.2T PO; -FURO40TA5 PO; +GLIP10TA10 MT; -GLIP10TA10 PO; -LISI-604 MT; -METF-414 PO; -TAMS0.4C31 PO
[2019-01-27] MEDS ORDERED: FUROSEMIDE 40MG/4ML VIAL IV ONE (18:15)
[2019-01-27] MEDS ORDERED: ASPIRIN 81MG TABLET PO ONE (18:15)
[2019-01-27] MEDS ORDERED: ACETAMINOPHEN 325MG TABLET PO ONE (18:15)
[2019-01-27 18:22] LABS: HEMATOCRIT. 35.6 % (42.0-52.0); HEMOGLOBIN. 12.2 g/dL (14.0-18.0); MEAN CORPUSCULAR HEMOGLOBIN 35.2 pg (28.0-32.0); MEAN CORPUSCULAR VOLUME 103.1 fL (80.0-94.0); MEAN PLATELET VOLUME 9.6 fl (7.4-10.4); PLATELET 138 x1000/uL (130-400); RED BLOOD CELL COUNT 3.45 mill/uL (4.7-6.1)
[2019-01-27 18:26] LABS: CHLORIDE 104 mEq/L (98-107)
[2019-01-27 18:29] LABS: INR 1.4; PARTIAL THROMBOPLASTIN TIME 25.5 sec (23.4-31.0)
[2019-01-27 18:30] LABS: ETHANOL BLOOD < 10 mg/dL
[2019-01-27 19:06] LABS: CLARITY URINE CLEAR (CLEAR); COLOR URINE DARK YELLOW (YELLOW); KETONES URINE NEGATIVE (NEGATIVE); LEUKOCYTE ESTERASE URINE NEGATIVE (NEGATIVE); NITRITE URINE NEGATIVE (NEGATIVE); OCCULT BLOOD URINE NEGATIVE (NEGATIVE); PROTEIN URINE 2+ (NEGATIVE); SPECIFIC GRAVITY URINE 1.016 (1.005-1.030)
[2019-01-27 19:18] LABS: *AMPHETAMINES SCREEN URINE NEGATIVE (NEGATIVE); *BARBITURATES SCREEN URINE NEGATIVE (NEGATIVE); *BENZODIAZEPINES SCREEN URINE NEGATIVE (NEGATIVE); *COCAINE SCREEN URINE NEGATIVE (NEGATIVE); METHADONE URINE SCREEN NEGATIVE (NEGATIVE)
[2019-01-27 19:19] LABS: CANNABINOID URINE SCREEN NEGATIVE (NEGATIVE); OPIATES URINE SCREEN NEGATIVE (NEGATIVE); PHENCYCLIDINE URINE SCREEN NEGATIVE (NEGATIVE)
[2019-01-27 19:56] LABS: PLATELET ESTIMATE NORMAL
[2019-01-28] MEDS ORDERED: HYDROCODONE/ACETAMINOPHEN 5/325MG TABLET PO PRN (00:45)
[2019-01-28] MEDS ORDERED: CLONIDINE 0.1MG TABLET PO PRN (00:45)
[2019-01-28] MEDS ORDERED: ONDANSETRON HCL 4MG/2ML INJ IV PRN (00:45)
[2019-01-28] MEDS ORDERED: IPRATROPIUM/ALBUTEROL 0.5-3(2.5)MG/3ML NEB INH PRN (00:45)
[2019-01-28] MEDS ORDERED: MAGNESIUM/ALUMINUM HYDROXIDE/SIMETHICONE 30ML UDC PO PRN (00:45)
[2019-01-28] MEDS ORDERED: ACETAMINOPHEN 325MG TABLET PO PRN (00:45)
[2019-01-28] MEDS ORDERED: DOCUSATE SODIUM 100MG CAPSULE PO PRN (00:45)
[2019-01-28 01:50] VITALS: BP 147/97
[2019-01-28 04:00] VITALS: BP 122/86
[2019-01-28] MEDS: ASPIRIN 81MG EC TABLET PO SCH (08:46)
[2019-01-28] MEDS: FUROSEMIDE 40MG/4ML VIAL IV SCH ×2 (08:47→17:03)
[2019-01-28 08:56] VITALS: BP 157/111
[2019-01-28] MEDS ORDERED: ENOXAPARIN 30MG/0.3ML SYR SUBCUT SCH (09:00)
[2019-01-28] MEDS ORDERED: CARV25TA47 PO (09:17)
[2019-01-28] MEDS ORDERED: FURO80TA3 PO (09:17)
[2019-01-28] MEDS ORDERED: GLIP5TAB12 PO (09:17)
[2019-01-28 09:42] LABS: HEMATOCRIT. 35.2 % (42.0-52.0); HEMOGLOBIN. 11.9 g/dL (14.0-18.0); MEAN CORPUSCULAR VOLUME 103.9 fL (80.0-94.0); PLATELET 136 x1000/uL (130-400); RED BLOOD CELL COUNT 3.39 mill/uL (4.7-6.1); RED CELL DISTRIBUTION WIDTH 14.9 % (11.6-14.6)
[2019-01-28 09:48] LABS: CHLORIDE 103 mEq/L (98-107)
[2019-01-28 10:06] LABS: LDL CHOLESTEROL 66 mg/dL (5-100)
[2019-01-28 10:08] LABS: CREATINE KINASE 169 IU/L (39-308); HDL CHOLESTEROL 31 mg/dL (40-59)
[2019-01-28 10:11] LABS: CREATINE KINASE MB FRACTION 3.1 ng/mL (0.5-3.6)
[2019-01-28 11:16] LABS: PLATELET ESTIMATE NORMAL
[2019-01-28] MEDS ORDERED: LISINOPRIL 5MG TABLET PO SCH (12:24)
[2019-01-28] MEDS: APIXABAN 5 MG TABLET PO SCH ×2 (12:30→17:00)
[2019-01-28 12:38] VITALS: BP 138/106
[2019-01-28] MEDS ORDERED: LISINOPRIL 20MG TABLET PO NR (12:45)
[2019-01-28] MEDS: SPIRONOLACTONE 25MG TABLET PO SCH (13:18)
[2019-01-28 16:20] VITALS: BP 109/68
[2019-01-28 17:58] LABS: CREATINE KINASE MB FRACTION 2.8 ng/mL (0.5-3.6)
[2019-01-28 20:26] VITALS: BP 109/76
[2019-01-28] MEDS: CARVEDILOL 12.5MG TABLET PO SCH (20:52)
[2019-01-28] MEDS ORDERED: CARVEDILOL 6.25 MG TABLET PO SCH (21:00)
[2019-01-29] VITALS (7 sets, daily range): BP systolic 107–131; BP diastolic 60–86
[2019-01-29 06:49] LABS: CHLORIDE 102 mEq/L (98-107); HEMATOCRIT. 33.8 % (42.0-52.0); HEMOGLOBIN. 11.5 g/dL (14.0-18.0); MEAN CORPUSCULAR HEMOGLOBIN 35.2 pg (28.0-32.0); MEAN CORPUSCULAR VOLUME 103.8 fL (80.0-94.0); MEAN PLATELET VOLUME 9.7 fl (7.4-10.4); PLATELET 131 x1000/uL (130-400); RED BLOOD CELL COUNT 3.25 mill/uL (4.7-6.1); RED CELL DISTRIBUTION WIDTH 14.9 % (11.6-14.6)
[2019-01-29 07:34] LABS: PLATELET ESTIMATE NORMAL
[2019-01-29] MEDS: FUROSEMIDE 40MG/4ML VIAL IV SCH ×2 (08:45→19:00)
[2019-01-29] MEDS: LISINOPRIL 20MG TABLET PO SCH (09:00)
[2019-01-29] MEDS: APIXABAN 5 MG TABLET PO SCH ×2 (09:00→17:00)
[2019-01-29] MEDS: CARVEDILOL 12.5MG TABLET PO SCH ×2 (09:16→21:24)
[2019-01-29] MEDS: SPIRONOLACTONE 25MG TABLET PO SCH (09:16)
[2019-01-29] MEDS: ASPIRIN 81MG EC TABLET PO SCH (09:16)
[2019-01-29] MEDS ORDERED: FUROSEMIDE 40MG/4ML VIAL IVP SCH (15:00)
[2019-01-30] VITALS (7 sets, daily range): BP systolic 106–120; BP diastolic 53–85
[2019-01-30 08:35] LABS: HEMATOCRIT. 34.8 % (42.0-52.0); HEMOGLOBIN. 11.6 g/dL (14.0-18.0); MEAN CORPUSCULAR HEMOGLOBIN 34.7 pg (28.0-32.0); MEAN CORPUSCULAR VOLUME 103.9 fL (80.0-94.0); PLATELET 129 x1000/uL (130-400); RED BLOOD CELL COUNT 3.35 mill/uL (4.7-6.1); RED CELL DISTRIBUTION WIDTH 14.7 % (11.6-14.6)
[2019-01-30 08:44] LABS: CHLORIDE 101 mEq/L (98-107)
[2019-01-30] MEDS: APIXABAN 5 MG TABLET PO SCH ×3 (09:00→17:00)
[2019-01-30] MEDS: FUROSEMIDE 40MG/4ML VIAL IV SCH ×2 (09:16→18:34)
[2019-01-30] MEDS: ASPIRIN 81MG EC TABLET PO SCH (09:17)
[2019-01-30] MEDS: CARVEDILOL 12.5MG TABLET PO SCH (09:17)
[2019-01-30] MEDS: SPIRONOLACTONE 25MG TABLET PO SCH (09:17)
[2019-01-30] MEDS: LISINOPRIL 20MG TABLET PO SCH (09:18)
[2019-01-30 14:49] LABS: PLATELET ESTIMATE NORMAL
[2019-01-30] MEDS ORDERED: LISI-604 PO (17:55)
[2019-01-30] MEDS ORDERED: SPIR25TA PO (17:55)
[2019-01-30] MEDS ORDERED: ASPI-1158 PO (17:55)
[2019-01-30] MEDS ORDERED: APIX5TAB PO (17:55)
[2019-01-30] MEDS ORDERED: CARVEDILOL 12.5MG TABLET PO SCH (21:00)
== END 2019-01-30 21:40 | disposition home or self-care (01) | DRG 194 ==
LOC: EDBEDREQ 18:10 → EDBEDREQTM 21:15 → ER 21:16 → ENRESERV 22:06 → 6WST 01-28 00:10
PROVIDERS: ADMIT Internal Medicine; ATTEND Internal Medicine
DX: I11.0 Hypertensive heart disease with heart failure (principal); J96.00 Acute respiratory failure, unspecified whether with hypoxia or hypercapnia; I27.20 Pulmonary hypertension, unspecified; E11.621 Type 2 diabetes mellitus with foot ulcer; Z68.42 Body mass index [BMI] 45.0-49.9, adult; I08.1 Rheumatic disorders of both mitral and tricuspid valves; I50.23 Acute on chronic systolic (congestive) heart failure; I42.9 Cardiomyopathy, unspecified; L97.229 Non-pressure chronic ulcer of left calf with unspecified severity; R63.4 Abnormal weight loss; D64.9 Anemia, unspecified; I25.10 Atherosclerotic heart disease of native coronary artery without angina pectoris; I48.91 Unspecified atrial fibrillation; J44.9 Chronic obstructive pulmonary disease, unspecified; I25.2 Old myocardial infarction; Z79.01 Long term (current) use of anticoagulants; Z91.19 Patient's noncompliance with other medical treatment and regimen; Z90.49 Acquired absence of other specified parts of digestive tract; Z95.5 Presence of coronary angioplasty implant and graft; Z79.899 Other long term (current) drug therapy; Z71.3 Dietary counseling and surveillance
CPT/HCPCS: 36415; 71045; 80048; 80061; 80305; 80320; 82550; 82553; 82962; 83735; 83880; 84443; 84484; 93005; 93306; 93970; 99285; J1650; J1940; G0480

== ENCOUNTER 2019-04-28 10:16 | Inpatient (IN) | payer MEDICAID ==
[~2019-04-28] VITALS: Ht 177.8 cm; Wt 144.2 kg
[~2019-04-28 10:16] MED LIST changes: +APIX5TAB PO; +ASPI-1158 PO; +CARV25TA47 PO; +FURO80TA3 PO; -GLIP10TA10 MT; +GLIP5TAB12 PO; +LISI-604 PO; +SPIR25TA PO
[2019-04-28 11:54] LABS: HEMATOCRIT. 40.3 % (42.0-52.0); HEMOGLOBIN. 13.4 g/dL (14.0-18.0); MEAN CORPUSCULAR HEMOGLOBIN 35.2 pg (28.0-32.0); MEAN CORPUSCULAR VOLUME 105.9 fL (80.0-94.0); MEAN PLATELET VOLUME 9.6 fl (7.4-10.4); PLATELET 153 x1000/uL (130-400); RED BLOOD CELL COUNT 3.81 mill/uL (4.7-6.1); RED CELL DISTRIBUTION WIDTH 15.3 % (11.6-14.6)
[2019-04-28 12:01] LABS: CHLORIDE 104 mEq/L (98-107); INR 1.5; PROTHROMBIN TIME 15.3 sec (9.6-11.0)
[2019-04-28 12:31] LABS: PLATELET ESTIMATE NORMAL
[2019-04-28] MEDS ORDERED: ASPIRIN 81MG TABLET PO ONE (12:45)
[2019-04-28] MEDS ORDERED: FUROSEMIDE 40MG/4ML VIAL IVP ONE (12:45)
[2019-04-28] MEDS ORDERED: ZOLPIDEM TARTRATE 5MG TABLET PO PRN (19:00)
[2019-04-28] MEDS ORDERED: ONDANSETRON HCL 4MG/2ML INJ IV PRN (19:00)
[2019-04-28 21:30] VITALS: BP 123/88
[2019-04-28] MEDS: CARVEDILOL 6.25 MG TABLET PO SCH (22:00)
[2019-04-28] MEDS: FUROSEMIDE 40MG/4ML VIAL IVP SCH (22:07)
[2019-04-29] VITALS: BP 123/81
[2019-04-29 04:00] VITALS: BP 123/84
[2019-04-29 06:51] LABS: HEMATOCRIT. 37.5 % (42.0-52.0); HEMOGLOBIN. 12.4 g/dL (14.0-18.0); MEAN CORPUSCULAR VOLUME 106.1 fL (80.0-94.0); MEAN PLATELET VOLUME 9.9 fl (7.4-10.4); PLATELET 142 x1000/uL (130-400); RED BLOOD CELL COUNT 3.54 mill/uL (4.7-6.1); RED CELL DISTRIBUTION WIDTH 15.5 % (11.6-14.6)
[2019-04-29 08:00] VITALS: BP 108/72
[2019-04-29] MEDS ORDERED: ENOXAPARIN 30MG/0.3ML SYR SUBCUT SCH (09:00)
[2019-04-29] MEDS: FUROSEMIDE 40MG/4ML VIAL IVP SCH ×2 (09:59→20:28)
[2019-04-29] MEDS: LOSARTAN POTASSIUM 25 MG TABLET PO SCH (10:00)
[2019-04-29] MEDS: ASPIRIN 81MG TABLET PO SCH (10:01)
[2019-04-29] MEDS: DEXT 5%/0.45% NACL 1000ML 1,000 ML IV SCH (10:01)
[2019-04-29] MEDS: CARVEDILOL 6.25 MG TABLET PO SCH ×2 (10:01→20:28)
[2019-04-29 12:00] VITALS: BP 110/74
[2019-04-29 15:51] LABS: CREATINE KINASE MB FRACTION 2.2 ng/mL (0.5-3.6)
[2019-04-29 16:00] VITALS: BP 121/62
[2019-04-29 16:07] LABS: CLARITY URINE CLEAR (CLEAR); COLOR URINE YELLOW (YELLOW); KETONES URINE NEGATIVE (NEGATIVE); LEUKOCYTE ESTERASE URINE NEGATIVE (NEGATIVE); NITRITE URINE NEGATIVE (NEGATIVE); OCCULT BLOOD URINE NEGATIVE (NEGATIVE); PROTEIN URINE NEGATIVE (NEGATIVE); SPECIFIC GRAVITY URINE 1.008 (1.005-1.030); UROBILINOGEN URINE 0.2 E.U./dL (0.2-1.0)
[2019-04-29 16:20] LABS: *AMPHETAMINES SCREEN URINE NEGATIVE (NEGATIVE); *BARBITURATES SCREEN URINE NEGATIVE (NEGATIVE); *BENZODIAZEPINES SCREEN URINE NEGATIVE (NEGATIVE); *COCAINE SCREEN URINE NEGATIVE (NEGATIVE); METHADONE URINE SCREEN NEGATIVE (NEGATIVE); OPIATES URINE SCREEN PRESUMTIVE POSITIVE (NEGATIVE); PHENCYCLIDINE URINE SCREEN NEGATIVE (NEGATIVE)
[2019-04-29 16:21] LABS: CANNABINOID URINE SCREEN NEGATIVE (NEGATIVE)
[2019-04-29] MEDS: APIXABAN 2.5 MG TABLET PO SCH (18:46)
[2019-04-29 20:00] VITALS: BP 119/80
[2019-04-29] MEDS ORDERED: DEXTROSE 50% WATER 50ML SYRINGE IV PRN (20:45)
[2019-04-29] MEDS: BLOOD SUGAR DIAGNOSTIC STRIP TEST SCH (20:50)
[2019-04-29] MEDS: ACETAMINOPHEN 325MG TABLET PO PRN (21:05)
[2019-04-29 22:46] LABS: PLATELET ESTIMATE NORMAL
[2019-04-30] VITALS: BP 100/66
[2019-04-30] MEDS: ACETAMINOPHEN 325MG TABLET PO PRN ×3 (02:52→21:10)
[2019-04-30] MEDS: DEXT 5%/0.45% NACL 1000ML 1,000 ML IV SCH (03:55)
[2019-04-30 04:00] VITALS: BP 107/77
[2019-04-30] MEDS ORDERED: METOLAZONE 2.5MG TABLET PO NR ×2 (06:30→11:00)
[2019-04-30] MEDS: BLOOD SUGAR DIAGNOSTIC STRIP TEST SCH ×4 (07:40→21:35)
[2019-04-30 08:00] VITALS: BP 103/78
[2019-04-30] MEDS: CARVEDILOL 6.25 MG TABLET PO SCH (09:00)
[2019-04-30] MEDS: LOSARTAN POTASSIUM 25 MG TABLET PO SCH (09:00)
[2019-04-30] MEDS ORDERED: METOLAZONE 2.5MG TABLET PO SCH (09:00)
[2019-04-30] MEDS: APIXABAN 2.5 MG TABLET PO SCH ×2 (09:00→17:18)
[2019-04-30] MEDS: FUROSEMIDE 40MG/4ML VIAL IVP SCH ×2 (10:20→17:18)
[2019-04-30] MEDS: ASPIRIN 81MG TABLET PO SCH (10:21)
[2019-04-30] MEDS ORDERED: FUROSEMIDE 40MG/4ML VIAL IVP SCH (11:00)
[2019-04-30 12:00] VITALS: BP 130/82
[2019-04-30 16:00] VITALS: BP 116/70
[2019-04-30 20:00] VITALS: BP 104/73
[2019-04-30] MEDS: MORPHINE SULFATE 2 MG/ML CPJ (NOT FOR IM USE) IV PRN (23:19)
[2019-05-01] VITALS: BP 146/95
[2019-05-01] MEDS: FUROSEMIDE 40MG/4ML VIAL IVP SCH ×3 (02:35→17:01)
[2019-05-01] MEDS: BLOOD SUGAR DIAGNOSTIC STRIP TEST SCH ×4 (06:39→21:00)
[2019-05-01] MEDS: ACETAMINOPHEN 325MG TABLET PO PRN ×2 (06:49→22:39)
[2019-05-01 08:00] VITALS: BP 134/95
[2019-05-01 08:11] LABS: CHLORIDE 100 mEq/L (98-107)
[2019-05-01] MEDS ORDERED: METOLAZONE 2.5MG TABLET PO SCH (09:00)
[2019-05-01] MEDS: METOLAZONE 2.5MG TABLET PO SCH (09:32)
[2019-05-01] MEDS: ASPIRIN 81MG TABLET PO SCH (09:32)
[2019-05-01] MEDS: LOSARTAN POTASSIUM 25 MG TABLET PO SCH (09:32)
[2019-05-01] MEDS: APIXABAN 2.5 MG TABLET PO SCH ×2 (09:34→17:00)
[2019-05-01 12:00] VITALS: BP 139/97
[2019-05-01] MEDS: SPIRONOLACTONE 25MG TABLET PO SCH (14:50)
[2019-05-01 16:26] VITALS: BP 134/97
[2019-05-01 20:00] VITALS: BP 115/77
[2019-05-01] MEDS ORDERED: ALBU6.7H9 INH (20:32)
[2019-05-01] MEDS ORDERED: ATEN-42 PO (20:32)
[2019-05-01] MEDS ORDERED: METF-414 PO (20:32)
[2019-05-01] MEDS ORDERED: CLON0.2T PO (20:32)
[2019-05-01] MEDS ORDERED: FLUT1BLS9 IH (20:32)
[2019-05-01] MEDS ORDERED: ALLO100T PO (20:32)
[2019-05-01] MEDS ORDERED: AMLO10TA80 PO (20:32)
[2019-05-01] MEDS ORDERED: GABA-290 PO (20:32)
[2019-05-01] MEDS ORDERED: TAMS-11 PO (20:33)
[2019-05-02] VITALS: BP 104/73
[2019-05-02] MEDS: FUROSEMIDE 40MG/4ML VIAL IVP SCH ×3 (01:54→17:49)
[2019-05-02 04:00] VITALS: BP 132/80
[2019-05-02 07:12] LABS: HEMATOCRIT. 42.2 % (42.0-52.0); HEMOGLOBIN. 14.1 g/dL (14.0-18.0); MEAN CORPUSCULAR HEMOGLOBIN 35.2 pg (28.0-32.0); MEAN CORPUSCULAR VOLUME 105.1 fL (80.0-94.0); MEAN PLATELET VOLUME 9.9 fl (7.4-10.4); PLATELET 148 x1000/uL (130-400); RED BLOOD CELL COUNT 4.02 mill/uL (4.7-6.1); RED CELL DISTRIBUTION WIDTH 14.9 % (11.6-14.6)
[2019-05-02] MEDS: BLOOD SUGAR DIAGNOSTIC STRIP TEST SCH ×4 (07:40→21:00)
[2019-05-02 08:00] VITALS: BP 146/83
[2019-05-02 08:14] LABS: CHLORIDE 95 mEq/L (98-107)
[2019-05-02] MEDS: LOSARTAN POTASSIUM 25 MG TABLET PO SCH (08:55)
[2019-05-02] MEDS: METOLAZONE 2.5MG TABLET PO SCH (08:55)
[2019-05-02] MEDS: ASPIRIN 81MG TABLET PO SCH (08:55)
[2019-05-02] MEDS: SPIRONOLACTONE 25MG TABLET PO SCH (08:56)
[2019-05-02] MEDS: APIXABAN 2.5 MG TABLET PO SCH ×2 (09:00→17:00)
[2019-05-02 12:00] VITALS: BP 138/79
[2019-05-02 16:00] VITALS: BP 103/67
[2019-05-02 17:40] LABS: PLATELET ESTIMATE NORMAL
[2019-05-02 20:00] VITALS: BP 108/75
[2019-05-02] MEDS: MORPHINE SULFATE 2 MG/ML CPJ (NOT FOR IM USE) IV PRN (23:29)
[2019-05-03] VITALS (7 sets, daily range): BP systolic 102–128; BP diastolic 60–77
[2019-05-03] MEDS: ACETAMINOPHEN 325MG TABLET PO PRN ×2 (01:37→23:54)
[2019-05-03] MEDS: FUROSEMIDE 40MG/4ML VIAL IVP SCH ×3 (01:42→18:23)
[2019-05-03 06:35] LABS: CHLORIDE 92 mEq/L (98-107)
[2019-05-03 07:07] LABS: BASOPHILS % 1.1 % (0.0-2.0); EOSINOPHILS % 8.1 % (0.0-5.0); HEMATOCRIT. 40.3 % (42.0-52.0); HEMOGLOBIN. 13.6 g/dL (14.0-18.0); LYMPHOCYTES % 8.3 % (20.0-50.0); MEAN CORPUSCULAR HEMOGLOBIN 35.3 pg (28.0-32.0); MEAN CORPUSCULAR VOLUME 104.6 fL (80.0-94.0); MONOCYTES % 14.6 % (2.0-8.0); NEUTROPHILS % 67.9 % (40.0-76.0); RED BLOOD CELL COUNT 3.85 mill/uL (4.7-6.1); RED CELL DISTRIBUTION WIDTH 15.2 % (11.6-14.6)
[2019-05-03] MEDS: BLOOD SUGAR DIAGNOSTIC STRIP TEST SCH ×4 (07:40→21:29)
[2019-05-03] MEDS: LOSARTAN POTASSIUM 25 MG TABLET PO SCH (09:07)
[2019-05-03] MEDS: SPIRONOLACTONE 25MG TABLET PO SCH (09:10)
[2019-05-03] MEDS: APIXABAN 2.5 MG TABLET PO SCH ×2 (09:11→18:30)
[2019-05-03] MEDS: ASPIRIN 81MG TABLET PO SCH (09:11)
[2019-05-03] MEDS: METOLAZONE 2.5MG TABLET PO SCH (09:14)
[2019-05-03 11:51] LABS: PLATELET 141 x1000/uL (130-400)
[2019-05-03] MEDS ORDERED: SPIR25TA PO (15:16)
[2019-05-03] MEDS ORDERED: APIX2.5T PO (15:16)
[2019-05-03] MEDS ORDERED: METO2.5T14 PO (15:16)
[2019-05-03] MEDS ORDERED: LOSA25TA3 PO (15:16)
[2019-05-03] MEDS: MORPHINE SULFATE 2 MG/ML CPJ (NOT FOR IM USE) IV PRN ×2 (18:24→23:46)
[2019-05-04] VITALS: BP 132/84
[2019-05-04 02:00] VITALS: BP 123/73
[2019-05-04] MEDS: FUROSEMIDE 40MG/4ML VIAL IVP SCH ×3 (02:24→17:18)
[2019-05-04 04:00] VITALS: BP 134/80
[2019-05-04] MEDS: BLOOD SUGAR DIAGNOSTIC STRIP TEST SCH ×4 (06:42→20:19)
[2019-05-04] MEDS: SPIRONOLACTONE 25MG TABLET PO SCH (09:36)
[2019-05-04] MEDS: METOLAZONE 2.5MG TABLET PO SCH (09:36)
[2019-05-04] MEDS: ASPIRIN 81MG TABLET PO SCH (09:36)
[2019-05-04] MEDS: LOSARTAN POTASSIUM 25 MG TABLET PO SCH (09:37)
[2019-05-04] MEDS: APIXABAN 2.5 MG TABLET PO SCH ×2 (09:43→17:00)
[2019-05-04] MEDS: ACETAMINOPHEN 325MG TABLET PO PRN (09:46)
[2019-05-04 16:00] VITALS: BP 144/78
[2019-05-04 20:00] VITALS: BP 123/70
[2019-05-05 00:48] VITALS: BP 144/91
[2019-05-05] MEDS: FUROSEMIDE 40MG/4ML VIAL IVP SCH ×3 (01:40→19:00)
[2019-05-05] MEDS: BLOOD SUGAR DIAGNOSTIC STRIP TEST SCH ×4 (07:40→21:09)
[2019-05-05 08:00] VITALS: BP 151/91
[2019-05-05] MEDS: APIXABAN 2.5 MG TABLET PO SCH ×2 (09:00→17:00)
[2019-05-05] MEDS: SPIRONOLACTONE 25MG TABLET PO SCH (09:52)
[2019-05-05] MEDS: METOLAZONE 2.5MG TABLET PO SCH (09:52)
[2019-05-05] MEDS: ASPIRIN 81MG TABLET PO SCH (09:52)
[2019-05-05] MEDS: LOSARTAN POTASSIUM 25 MG TABLET PO SCH (09:53)
[2019-05-05 12:00] VITALS: BP 108/64
[2019-05-05] MEDS: ACETAMINOPHEN 325MG TABLET PO PRN ×2 (13:49→22:38)
[2019-05-05 16:00] VITALS: BP 124/68
[2019-05-05 20:00] VITALS: BP 102/70
[2019-05-06] VITALS: BP 99/52
[2019-05-06] MEDS: FUROSEMIDE 40MG/4ML VIAL IVP SCH ×3 (03:16→17:46)
[2019-05-06 04:00] VITALS: BP 100/63
[2019-05-06] MEDS: ACETAMINOPHEN 325MG TABLET PO PRN ×2 (04:48→10:51)
[2019-05-06] MEDS: BLOOD SUGAR DIAGNOSTIC STRIP TEST SCH ×4 (07:52→21:00)
[2019-05-06] MEDS: ASPIRIN 81MG TABLET PO SCH (08:56)
[2019-05-06] MEDS: SPIRONOLACTONE 25MG TABLET PO SCH (08:57)
[2019-05-06] MEDS: METOLAZONE 2.5MG TABLET PO SCH (08:57)
[2019-05-06] MEDS: APIXABAN 2.5 MG TABLET PO SCH ×2 (08:58→09:18)
[2019-05-06] MEDS: LOSARTAN POTASSIUM 25 MG TABLET PO SCH (09:00)
[2019-05-06] MEDS ORDERED: DEXTROSE 50% WATER 50ML SYRINGE IV PRN (13:45)
[2019-05-06] MEDS: INSULIN LISPRO 100 UNITS/ML SUBCUT SCH ×2 (14:14→21:00)
[2019-05-06 16:00] VITALS: BP 101/55
[2019-05-06] MEDS ORDERED: BLOOD SUGAR DIAGNOSTIC STRIP TEST SCH (17:40)
[2019-05-06] MEDS: HYDROCODONE/ACETAMINOPHEN 5/325MG TABLET PO PRN (17:46)
[2019-05-06 20:00] VITALS: BP 110/72
[2019-05-07] VITALS: BP 97/58
[2019-05-07] MEDS: FUROSEMIDE 40MG/4ML VIAL IVP SCH ×3 (01:13→17:03)
[2019-05-07] MEDS: ACETAMINOPHEN 325MG TABLET PO PRN ×2 (02:22→10:11)
[2019-05-07 04:00] VITALS: BP 98/53
[2019-05-07 07:28] LABS: HEMATOCRIT. 43.2 % (42.0-52.0); HEMOGLOBIN. 14.8 g/dL (14.0-18.0); MEAN CORPUSCULAR HEMOGLOBIN 35.5 pg (28.0-32.0); MEAN CORPUSCULAR VOLUME 103.8 fL (80.0-94.0); MEAN PLATELET VOLUME 10.8 fl (7.4-10.4); PLATELET 143 x1000/uL (130-400); RED BLOOD CELL COUNT 4.17 mill/uL (4.7-6.1); RED CELL DISTRIBUTION WIDTH 14.5 % (11.6-14.6)
[2019-05-07] MEDS: BLOOD SUGAR DIAGNOSTIC STRIP TEST SCH ×4 (07:40→21:11)
[2019-05-07 08:00] VITALS: BP 117/76
[2019-05-07] MEDS: INSULIN LISPRO 100 UNITS/ML SUBCUT SCH ×4 (08:10→21:00)
[2019-05-07] MEDS: SPIRONOLACTONE 25MG TABLET PO SCH (09:30)
[2019-05-07] MEDS: APIXABAN 2.5 MG TABLET PO SCH ×2 (09:31→16:48)
[2019-05-07] MEDS: LOSARTAN POTASSIUM 25 MG TABLET PO SCH (09:31)
[2019-05-07] MEDS: METOLAZONE 2.5MG TABLET PO SCH (09:31)
[2019-05-07] MEDS: ASPIRIN 81MG TABLET PO SCH (09:32)
[2019-05-07 12:00] VITALS: BP 115/55
[2019-05-07] MEDS: LORAZEPAM 2MG/ML CPJ IV PRN (12:09)
[2019-05-07 13:58] LABS: PLATELET ESTIMATE NORMAL
[2019-05-07 16:00] VITALS: BP 117/72
[2019-05-07 20:00] VITALS: BP 126/74
[2019-05-08] VITALS: BP 117/63
[2019-05-08] MEDS: FUROSEMIDE 40MG/4ML VIAL IVP SCH ×3 (02:15→18:24)
[2019-05-08] MEDS: LORAZEPAM 2MG/ML CPJ IV PRN (02:15)
[2019-05-08 04:00] VITALS: BP 120/78
[2019-05-08] MEDS: BLOOD SUGAR DIAGNOSTIC STRIP TEST SCH ×4 (06:20→21:36)
[2019-05-08 08:00] VITALS: BP 113/66
[2019-05-08] MEDS: INSULIN LISPRO 100 UNITS/ML SUBCUT SCH ×5 (08:10→21:00)
[2019-05-08] MEDS: APIXABAN 2.5 MG TABLET PO SCH ×2 (09:00→17:00)
[2019-05-08] MEDS: ASPIRIN 81MG TABLET PO SCH (09:14)
[2019-05-08] MEDS: SPIRONOLACTONE 25MG TABLET PO SCH (09:14)
[2019-05-08] MEDS: LOSARTAN POTASSIUM 25 MG TABLET PO SCH (09:14)
[2019-05-08] MEDS: METOLAZONE 2.5MG TABLET PO SCH (09:14)
[2019-05-08 12:00] VITALS: BP 95/64
[2019-05-08 20:00] VITALS: BP 109/72
[2019-05-08] MEDS: HYDROCODONE/ACETAMINOPHEN 5/325MG TABLET PO PRN (23:37)
[2019-05-09] VITALS (7 sets, daily range): BP systolic 86–118; BP diastolic 49–69
[2019-05-09] MEDS: FUROSEMIDE 40MG/4ML VIAL IVP SCH ×3 (02:00→18:00)
[2019-05-09] MEDS: LORAZEPAM 2MG/ML CPJ IV PRN (03:24)
[2019-05-09] MEDS: MORPHINE SULFATE 2 MG/ML CPJ (NOT FOR IM USE) IV PRN ×2 (03:24→07:46)
[2019-05-09 05:41] LABS: HEMATOCRIT. 40.4 % (42.0-52.0); HEMOGLOBIN. 13.6 g/dL (14.0-18.0); MEAN CORPUSCULAR HEMOGLOBIN 34.8 pg (28.0-32.0); MEAN CORPUSCULAR VOLUME 103.4 fL (80.0-94.0); MEAN PLATELET VOLUME 10.7 fl (7.4-10.4); PLATELET 156 x1000/uL (130-400); RED BLOOD CELL COUNT 3.91 mill/uL (4.7-6.1); RED CELL DISTRIBUTION WIDTH 14.6 % (11.6-14.6)
[2019-05-09] MEDS: INSULIN LISPRO 100 UNITS/ML SUBCUT SCH ×4 (07:29→20:49)
[2019-05-09] MEDS: BLOOD SUGAR DIAGNOSTIC STRIP TEST SCH ×4 (07:29→20:49)
[2019-05-09] MEDS: APIXABAN 2.5 MG TABLET PO SCH ×2 (08:22→17:00)
[2019-05-09 08:44] LABS: PLATELET ESTIMATE NORMAL
[2019-05-09] MEDS: LOSARTAN POTASSIUM 25 MG TABLET PO SCH (09:00)
[2019-05-09] MEDS: METOLAZONE 2.5MG TABLET PO SCH (09:39)
[2019-05-09] MEDS: ASPIRIN 81MG TABLET PO SCH (09:39)
[2019-05-09] MEDS: SPIRONOLACTONE 25MG TABLET PO SCH (09:40)
[2019-05-09] MEDS: HYDROCODONE/ACETAMINOPHEN 5/325MG TABLET PO PRN ×2 (09:42→18:07)
[2019-05-09] MEDS: ACETAMINOPHEN 325MG TABLET PO PRN (12:11)
[2019-05-09] MEDS ORDERED: HYDROCODONE/ACETAMINOPHEN 10/325MG TABLET PO PRN (19:00)
[2019-05-10] VITALS: BP 109/70
[2019-05-10] MEDS: FUROSEMIDE 40MG/4ML VIAL IVP SCH ×3 (01:38→18:00)
[2019-05-10 04:00] VITALS: BP 119/77
[2019-05-10] MEDS: BLOOD SUGAR DIAGNOSTIC STRIP TEST SCH ×4 (07:40→21:00)
[2019-05-10 08:00] VITALS: BP 120/72
[2019-05-10] MEDS: INSULIN LISPRO 100 UNITS/ML SUBCUT SCH ×4 (08:10→21:00)
[2019-05-10] MEDS: METOLAZONE 2.5MG TABLET PO SCH ×2 (09:23→09:36)
[2019-05-10] MEDS: ASPIRIN 81MG TABLET PO SCH ×2 (09:23→09:34)
[2019-05-10] MEDS: APIXABAN 2.5 MG TABLET PO SCH ×2 (09:23→09:33)
[2019-05-10] MEDS: LOSARTAN POTASSIUM 25 MG TABLET PO SCH ×2 (09:24→09:35)
[2019-05-10] MEDS: SPIRONOLACTONE 25MG TABLET PO SCH ×2 (09:24→09:32)
[2019-05-10 10:15] LABS: BG BASE EXCESS 7.2 mmol/L (-2.0-2.0); BG CARBOXYHEMOGLOBIN 0.8 % (0.5-1.5); BG DEOXYHEMOGLOBIN 5.1 % (0.0-5.0); BG FRACTION INSPIRED OXYGEN 21; BG HCO3 ACT 31.2 mmol/L (22.0-26.0); BG METHEMOGLOBIN 0.5 % (0.0-1.5); BG OXYGEN SATURATION 94.8 % (92.0-98.5); BG OXYHEMOGLOBIN 93.6 % (94.0-97.0); BG PH 7.489 (7.350-7.450); BG PO2 75.3 mmHg (75.0-100.0); BG SAMPLE SITE RIGHT RADIAL; BG TOTAL HEMOGLOBIN 13.3 g/dL (12.0-18.0); BG VENT MODE ROOM AIR
[2019-05-10 12:00] VITALS: BP 100/68
[2019-05-10 12:02] LABS: *BARBITURATES SCREEN URINE NEGATIVE (NEGATIVE); CANNABINOID URINE SCREEN NEGATIVE (NEGATIVE); PHENCYCLIDINE URINE SCREEN NEGATIVE (NEGATIVE)
[2019-05-10 12:03] LABS: ETHANOL BLOOD < 10 mg/dL
[2019-05-10 12:03] LABS: *AMPHETAMINES SCREEN URINE NEGATIVE (NEGATIVE); *BENZODIAZEPINES SCREEN URINE NEGATIVE (NEGATIVE); METHADONE URINE SCREEN NEGATIVE (NEGATIVE); OPIATES URINE SCREEN PRESUMTIVE POSITIVE (NEGATIVE)
[2019-05-10 12:04] LABS: *COCAINE SCREEN URINE NEGATIVE (NEGATIVE)
[2019-05-10 12:08] LABS: T4 FREE 1.25 ng/dL (0.76-1.46)
[2019-05-10] MEDS: ACETAMINOPHEN 325MG TABLET PO PRN (12:45)
[2019-05-10 13:25] LABS: FOLIC ACID (FOLATE) SERUM 8.1 ng/mL (>5.38)
[2019-05-10 16:00] VITALS: BP 111/72
[2019-05-10 20:00] VITALS: BP 114/63
[2019-05-11] VITALS: BP 118/69
[2019-05-11] MEDS: FUROSEMIDE 40MG/4ML VIAL IVP SCH ×3 (02:17→18:08)
[2019-05-11] MEDS: BLOOD SUGAR DIAGNOSTIC STRIP TEST SCH ×3 (07:40→18:05)
[2019-05-11 08:00] VITALS: BP 116/81
[2019-05-11] MEDS: INSULIN LISPRO 100 UNITS/ML SUBCUT SCH ×3 (08:10→18:05)
[2019-05-11] MEDS: APIXABAN 2.5 MG TABLET PO SCH ×4 (09:00→17:00)
[2019-05-11] MEDS: MORPHINE SULFATE 2 MG/ML CPJ (NOT FOR IM USE) IV PRN (11:57)
[2019-05-11 12:00] VITALS: BP 130/74
[2019-05-11] MEDS: ACETAMINOPHEN 325MG TABLET PO PRN ×2 (12:21→18:00)
[2019-05-11 16:14] VITALS: BP 116/50
== END 2019-05-11 18:50 | DRG 194 ==
LOC: ER 10:16 → 7WST 15:52 → ENRESERV 20:18
PROVIDERS: ADMIT Internal Medicine; ATTEND Internal Medicine
DX: I13.0 Hypertensive heart and chronic kidney disease with heart failure and stage 1 through stage 4 chronic kidney disease, or unspecified chronic kidney disease (principal); G92 Toxic encephalopathy; E11.649 Type 2 diabetes mellitus with hypoglycemia without coma; E11.22 Type 2 diabetes mellitus with diabetic chronic kidney disease; D72.1 Eosinophilia; N17.9 Acute kidney failure, unspecified; N18.3 Chronic kidney disease, stage 3 (moderate); E66.01 Morbid (severe) obesity due to excess calories; I50.23 Acute on chronic systolic (congestive) heart failure; I27.20 Pulmonary hypertension, unspecified; D64.9 Anemia, unspecified; I25.10 Atherosclerotic heart disease of native coronary artery without angina pectoris; I42.9 Cardiomyopathy, unspecified; I48.91 Unspecified atrial fibrillation; I34.0 Nonrheumatic mitral (valve) insufficiency; J44.9 Chronic obstructive pulmonary disease, unspecified; E87.1 Hypo-osmolality and hyponatremia; L97.929 Non-pressure chronic ulcer of unspecified part of left lower leg with unspecified severity; N50.89 Other specified disorders of the male genital organs; Z90.89 Acquired absence of other organs; Z95.5 Presence of coronary angioplasty implant and graft; Z79.899 Other long term (current) drug therapy; Z79.82 Long term (current) use of aspirin; Z68.42 Body mass index [BMI] 45.0-49.9, adult; Z71.3 Dietary counseling and surveillance
CPT/HCPCS: 36415; 36600; 71045; 80048; 80305; 80320; 81003; 82140; 82375; 82550; 82553; 82607; 82746; 82805; 82962; 83036; 83880; 84439; 84443; 84481; 84484; 93005; 93970; 96374; 97110; 97116; 97162; 99285; C1893; J1650; J1815; J1940; J2060; J2270; G0480

== ENCOUNTER 2019-05-11 23:12 | Inpatient (IN) | payer MEDICAID ==
[~2019-05-11] VITALS: Ht 177.8 cm; Wt 112.1 kg
[~2019-05-11 23:12] MED LIST changes: +ALBU6.7H9 INH; +ALLO100T PO; +APIX2.5T PO; -APIX5TAB PO; -CARV25TA47 PO; +FLUT1BLS9 IH; +GABA-290 PO; -LISI-604 PO; +LOSA25TA3 PO; +METF-414 PO; +METO2.5T14 PO; +TAMS-11 PO
[2019-05-12] MEDS ORDERED: KETOROLAC 60MG/2ML VIAL IM STA (00:18)
[2019-05-12 00:42] LABS: HEMATOCRIT. 38.2 % (42.0-52.0); MEAN CORPUSCULAR HEMOGLOBIN 35.2 pg (28.0-32.0); MEAN CORPUSCULAR VOLUME 103.3 fL (80.0-94.0); MEAN PLATELET VOLUME 9.8 fl (7.4-10.4); PLATELET 139 x1000/uL (130-400); RED CELL DISTRIBUTION WIDTH 14.5 % (11.6-14.6)
[2019-05-12 00:45] LABS: CHLORIDE 97 mEq/L (98-107)
[2019-05-12] MEDS ORDERED: ACETAMINOPHEN 500MG TABLET PO ONE (00:45)
[2019-05-12 00:54] LABS: BETA HYDROXYBUTYRATE 0.1 mMol/L (0.0-0.3)
[2019-05-12 01:19] LABS: PLATELET ESTIMATE NORMAL
[2019-05-12] MEDS: METOPROLOL TARTRATE 100MG TABLET PO ONE ×2 (03:31→03:32)
[2019-05-13] MEDS ORDERED: LORAZEPAM 2MG/ML CPJ IV PRN (13:15)
[2019-05-13] MEDS ORDERED: NA PHOS,M-B/NA PHOS,DI-BA ENEMA 118ML PR PRN (13:15)
[2019-05-13] MEDS ORDERED: ONDANSETRON HCL 4MG/2ML INJ IV PRN (13:15)
[2019-05-13] MEDS ORDERED: HYDROCODONE/ACETAMINOPHEN 10/325MG TABLET PO PRN (13:15)
[2019-05-13] MEDS ORDERED: ACETAMINOPHEN 325MG TABLET PO PRN (13:15)
[2019-05-13] MEDS ORDERED: IPRATROPIUM/ALBUTEROL 0.5-3(2.5)MG/3ML NEB NEB PRN (13:15)
[2019-05-13] MEDS ORDERED: CLONIDINE 0.1MG TABLET PO PRN (13:15)
[2019-05-13] MEDS ORDERED: GUAIFENESIN 200MG/10ML SUGAR FREE UDC PO PRN (13:15)
[2019-05-13] MEDS ORDERED: DIPHENHYDRAMINE 50MG/ML VIAL IV PRN (13:15)
[2019-05-13] MEDS ORDERED: MAGNESIUM/ALUMINUM HYDROXIDE/SIMETHICONE 30ML UDC PO PRN (13:15)
[2019-05-13] MEDS ORDERED: DOCUSATE SODIUM 100MG CAPSULE PO PRN (13:15)
[2019-05-13 16:01] LABS: CHLORIDE 101 mEq/L (98-107)
[2019-05-13 16:30] VITALS: BP 127/79
[2019-05-13 16:50] VITALS: BP 127/79
[2019-05-13] MEDS ORDERED: ENOXAPARIN 30MG/0.3ML SYR SUBCUT SCH (17:00)
[2019-05-13] MEDS ORDERED: DEXTROSE 50% WATER 50ML SYRINGE IV PRN (20:00)
[2019-05-13 20:18] VITALS: BP 103/72
[2019-05-13] MEDS: INSULIN LISPRO 100 UNITS/ML SUBCUT SCH (21:00)
[2019-05-13] MEDS: BLOOD SUGAR DIAGNOSTIC STRIP TEST SCH (21:25)
[2019-05-14] VITALS: BP 144/81
[2019-05-14 04:00] VITALS: BP 135/96
[2019-05-14] MEDS: BLOOD SUGAR DIAGNOSTIC STRIP TEST SCH ×4 (06:38→21:46)
[2019-05-14 06:56] LABS: BASOPHILS % 1.2 % (0.0-2.0); EOSINOPHILS % 17.8 % (0.0-5.0); HEMATOCRIT. 38.9 % (42.0-52.0); HEMOGLOBIN. 13.3 g/dL (14.0-18.0); LYMPHOCYTES % 12.7 % (20.0-50.0); MEAN CORPUSCULAR HEMOGLOBIN 35.6 pg (28.0-32.0); MEAN PLATELET VOLUME 10.5 fl (7.4-10.4); MONOCYTES % 12.3 % (2.0-8.0); PLATELET 152 x1000/uL (130-400); RED BLOOD CELL COUNT 3.74 mill/uL (4.7-6.1); RED CELL DISTRIBUTION WIDTH 14.4 % (11.6-14.6)
[2019-05-14 06:58] LABS: CHLORIDE 101 mEq/L (98-107)
[2019-05-14 07:18] LABS: LDL CHOLESTEROL 87 mg/dL (5-100)
[2019-05-14 07:21] LABS: HDL CHOLESTEROL 35 mg/dL (40-59); T4 FREE 1.22 ng/dL (0.76-1.46)
[2019-05-14] MEDS: INSULIN LISPRO 100 UNITS/ML SUBCUT SCH ×4 (07:50→21:00)
[2019-05-14 08:42] VITALS: BP 95/62
[2019-05-14] MEDS ORDERED: FUROSEMIDE 40MG/4ML VIAL IV SCH (09:00)
[2019-05-14] MEDS ORDERED: DIGOXIN 500MCG/2ML AMP IV SCH (09:00)
[2019-05-14] MEDS: ENOXAPARIN 100MG/ML SYR SUBCUT SCH ×2 (10:03→21:00)
[2019-05-14] MEDS: ASPIRIN 81MG EC TABLET PO SCH (10:03)
[2019-05-14 12:04] VITALS: BP 124/94
[2019-05-14] MEDS: LOSARTAN POTASSIUM 50 MG TABLET PO SCH (13:54)
[2019-05-14 15:34] LABS: CLARITY URINE CLEAR (CLEAR); COLOR URINE YELLOW (YELLOW); KETONES URINE NEGATIVE (NEGATIVE); LEUKOCYTE ESTERASE URINE NEGATIVE (NEGATIVE); NITRITE URINE NEGATIVE (NEGATIVE); OCCULT BLOOD URINE NEGATIVE (NEGATIVE); PH URINE 7.5 (4.5-8.0); PROTEIN URINE TRACE (NEGATIVE)
[2019-05-14 15:41] LABS: CREATINE KINASE MB FRACTION 1.9 ng/mL (0.5-3.6)
[2019-05-14 16:02] LABS: *AMPHETAMINES SCREEN URINE NEGATIVE (NEGATIVE); *BARBITURATES SCREEN URINE NEGATIVE (NEGATIVE); *BENZODIAZEPINES SCREEN URINE NEGATIVE (NEGATIVE); *COCAINE SCREEN URINE NEGATIVE (NEGATIVE); METHADONE URINE SCREEN NEGATIVE (NEGATIVE); OPIATES URINE SCREEN NEGATIVE (NEGATIVE)
[2019-05-14 16:03] LABS: CANNABINOID URINE SCREEN NEGATIVE (NEGATIVE); PHENCYCLIDINE URINE SCREEN NEGATIVE (NEGATIVE)
[2019-05-14 16:34] VITALS: BP 140/79
[2019-05-14 20:32] VITALS: BP 131/85
[2019-05-15 00:50] VITALS: BP 132/57
[2019-05-15 01:37] LABS: CREATINE KINASE MB FRACTION 2.4 ng/mL (0.5-3.6)
[2019-05-15 04:00] VITALS: BP 116/75
[2019-05-15] MEDS: MORPHINE SULFATE 2 MG/ML CPJ (NOT FOR IM USE) IV PRN (04:58)
[2019-05-15] MEDS: BLOOD SUGAR DIAGNOSTIC STRIP TEST SCH ×4 (06:31→21:45)
[2019-05-15 06:51] LABS: BASOPHILS % 0.9 % (0.0-2.0); EOSINOPHILS % 21.7 % (0.0-5.0); HEMATOCRIT. 37.5 % (42.0-52.0); HEMOGLOBIN. 12.7 g/dL (14.0-18.0); LYMPHOCYTES % 12.6 % (20.0-50.0); MEAN CORPUSCULAR VOLUME 103.5 fL (80.0-94.0); MONOCYTES % 11.5 % (2.0-8.0); NEUTROPHILS % 53.3 % (40.0-76.0); PLATELET 142 x1000/uL (130-400); RED BLOOD CELL COUNT 3.62 mill/uL (4.7-6.1); RED CELL DISTRIBUTION WIDTH 14.1 % (11.6-14.6)
[2019-05-15 06:59] LABS: INR 1.3
[2019-05-15 07:09] LABS: CHLORIDE 102 mEq/L (98-107)
[2019-05-15 07:18] LABS: CREATINE KINASE 86 IU/L (39-308)
[2019-05-15 07:19] LABS: CREATINE KINASE MB FRACTION 2.3 ng/mL (0.5-3.6)
[2019-05-15] MEDS: INSULIN LISPRO 100 UNITS/ML SUBCUT SCH ×4 (07:50→21:00)
[2019-05-15 08:00] VITALS: BP 116/79
[2019-05-15] MEDS: LOSARTAN POTASSIUM 50 MG TABLET PO SCH (09:42)
[2019-05-15] MEDS: FUROSEMIDE 40MG/4ML VIAL IV SCH (09:42)
[2019-05-15] MEDS: ASPIRIN 81MG EC TABLET PO SCH (09:42)
[2019-05-15] MEDS: ENOXAPARIN 100MG/ML SYR SUBCUT SCH ×2 (09:42→21:00)
[2019-05-15 12:00] VITALS: BP 117/82
[2019-05-15 16:00] VITALS: BP 122/71
[2019-05-15 20:00] VITALS: BP 94/70
[2019-05-16] VITALS: BP 105/71
[2019-05-16 06:00] VITALS: BP 123/66
[2019-05-16 06:33] LABS: HEMATOCRIT. 36.4 % (42.0-52.0); HEMOGLOBIN. 12.4 g/dL (14.0-18.0); MEAN CORPUSCULAR HEMOGLOBIN 35.1 pg (28.0-32.0); MEAN PLATELET VOLUME 10.5 fl (7.4-10.4); PLATELET 142 x1000/uL (130-400); RED BLOOD CELL COUNT 3.53 mill/uL (4.7-6.1); RED CELL DISTRIBUTION WIDTH 14.3 % (11.6-14.6)
[2019-05-16 06:50] LABS: CHLORIDE 100 mEq/L (98-107)
[2019-05-16] MEDS: BLOOD SUGAR DIAGNOSTIC STRIP TEST SCH ×4 (07:04→21:33)
[2019-05-16] MEDS: INSULIN LISPRO 100 UNITS/ML SUBCUT SCH ×4 (07:50→21:00)
[2019-05-16 08:00] VITALS: BP 128/81
[2019-05-16] MEDS: FUROSEMIDE 40MG/4ML VIAL IV SCH (09:31)
[2019-05-16] MEDS: ASPIRIN 81MG EC TABLET PO SCH (09:32)
[2019-05-16] MEDS: ENOXAPARIN 100MG/ML SYR SUBCUT SCH ×2 (09:32→21:00)
[2019-05-16] MEDS: LOSARTAN POTASSIUM 50 MG TABLET PO SCH (09:32)
[2019-05-16] MEDS: MORPHINE SULFATE 2 MG/ML CPJ (NOT FOR IM USE) IV PRN (14:15)
[2019-05-16 16:00] VITALS: BP 118/70
[2019-05-16 17:11] LABS: PLATELET ESTIMATE NORMAL
[2019-05-16 20:00] VITALS: BP 96/69
[2019-05-16] MEDS: GABAPENTIN 300MG CAPSULE PO SCH (21:34)
[2019-05-17] VITALS: BP 128/83
[2019-05-17 04:00] VITALS: BP 145/96
[2019-05-17 05:53] LABS: HEMATOCRIT. 35.5 % (42.0-52.0); HEMOGLOBIN. 12.1 g/dL (14.0-18.0); MEAN CORPUSCULAR VOLUME 102.8 fL (80.0-94.0); MEAN PLATELET VOLUME 10.3 fl (7.4-10.4); PLATELET 152 x1000/uL (130-400); RED BLOOD CELL COUNT 3.46 mill/uL (4.7-6.1); RED CELL DISTRIBUTION WIDTH 14.1 % (11.6-14.6)
[2019-05-17 05:56] LABS: CHLORIDE 101 mEq/L (98-107)
[2019-05-17] MEDS: BLOOD SUGAR DIAGNOSTIC STRIP TEST SCH ×4 (06:26→21:00)
[2019-05-17] MEDS: GABAPENTIN 300MG CAPSULE PO SCH ×3 (06:26→22:28)
[2019-05-17] MEDS: INSULIN LISPRO 100 UNITS/ML SUBCUT SCH ×4 (07:50→21:00)
[2019-05-17 08:00] VITALS: BP 114/84
[2019-05-17] MEDS: LOSARTAN POTASSIUM 50 MG TABLET PO SCH (10:03)
[2019-05-17] MEDS: ASPIRIN 81MG EC TABLET PO SCH (10:03)
[2019-05-17] MEDS: ENOXAPARIN 100MG/ML SYR SUBCUT SCH ×2 (10:04→22:29)
[2019-05-17] MEDS: FUROSEMIDE 40MG/4ML VIAL IV SCH (10:04)
[2019-05-17 12:00] VITALS: BP 102/43
[2019-05-17 13:38] LABS: PLATELET ESTIMATE NORMAL
[2019-05-17 20:00] VITALS: BP 99/54
[2019-05-18] VITALS: BP 129/80
[2019-05-18] MEDS: GABAPENTIN 300MG CAPSULE PO SCH ×3 (06:27→22:21)
[2019-05-18] MEDS: BLOOD SUGAR DIAGNOSTIC STRIP TEST SCH ×4 (06:27→21:52)
[2019-05-18] MEDS: INSULIN LISPRO 100 UNITS/ML SUBCUT SCH ×4 (07:49→21:00)
[2019-05-18 08:08] VITALS: BP 98/69
[2019-05-18] MEDS: LOSARTAN POTASSIUM 50 MG TABLET PO SCH (09:00)
[2019-05-18] MEDS: FUROSEMIDE 40MG/4ML VIAL IV SCH (10:05)
[2019-05-18] MEDS: ASPIRIN 81MG EC TABLET PO SCH (10:05)
[2019-05-18] MEDS: ENOXAPARIN 100MG/ML SYR SUBCUT SCH ×2 (10:05→21:00)
[2019-05-18 11:57] VITALS: BP 109/73
[2019-05-18 16:31] VITALS: BP 127/78
[2019-05-18 20:00] VITALS: BP 105/69
[2019-05-19] VITALS: BP 139/77
[2019-05-19 04:00] VITALS: BP 167/74
[2019-05-19] MEDS: BLOOD SUGAR DIAGNOSTIC STRIP TEST SCH ×3 (06:33→17:57)
[2019-05-19] MEDS: GABAPENTIN 300MG CAPSULE PO SCH ×2 (06:33→14:49)
[2019-05-19] MEDS: INSULIN LISPRO 100 UNITS/ML SUBCUT SCH ×3 (07:50→17:50)
[2019-05-19 08:19] VITALS: BP 134/80
[2019-05-19] MEDS: ASPIRIN 81MG EC TABLET PO SCH (09:15)
[2019-05-19] MEDS: FUROSEMIDE 40MG/4ML VIAL IV SCH (09:15)
[2019-05-19] MEDS: LOSARTAN POTASSIUM 50 MG TABLET PO SCH (09:15)
[2019-05-19] MEDS: ENOXAPARIN 100MG/ML SYR SUBCUT SCH (09:23)
[2019-05-19 12:01] VITALS: BP 101/72
[2019-05-19 16:05] VITALS: BP 100/71
[2019-05-19 16:29] VITALS: BP 100/71
[2019-05-19] MEDS ORDERED: ENOXAPARIN 120MG/0.8ML SYR SUBCUT SCH (21:00)
== END 2019-05-19 20:05 | disposition home health service (06) | DRG 194 ==
LOC: ER 23:12 → 6WST 05-13 12:30 → ENRESERV 05-13 13:54
PROVIDERS: ADMIT Internal Medicine; ATTEND Internal Medicine
DX: I13.0 Hypertensive heart and chronic kidney disease with heart failure and stage 1 through stage 4 chronic kidney disease, or unspecified chronic kidney disease (principal); N17.9 Acute kidney failure, unspecified; E11.22 Type 2 diabetes mellitus with diabetic chronic kidney disease; I50.9 Heart failure, unspecified; I48.20 Chronic atrial fibrillation, unspecified; I48.91 Unspecified atrial fibrillation; N18.9 Chronic kidney disease, unspecified; R00.0 Tachycardia, unspecified; G89.29 Other chronic pain; D64.9 Anemia, unspecified; I25.10 Atherosclerotic heart disease of native coronary artery without angina pectoris; Z79.01 Long term (current) use of anticoagulants; Z79.84 Long term (current) use of oral hypoglycemic drugs; Z79.899 Other long term (current) drug therapy; Z79.82 Long term (current) use of aspirin; Z59.0 Homelessness
CPT/HCPCS: 36415; 80048; 80061; 80305; 81003; 82550; 82553; 82962; 83036; 83880; 84439; 84443; 84484; 85379; 93005; 93306; 93970; 97161; 99284; A6261; J1160; J1200; J1650; J1885; J1940; J2270